=== PATIENT | male | born 1980 | race African-American/Black ===

== ENCOUNTER → 2019-11-06 10:37 | Outpatient (BNVA) | payer MEDICARE, MEDICAID, SELFPAY | PROVIDERS: Visit Provider Nurse Practitioner Psychiatric/Mental Health | DX: F33.1 Major depressive disorder, recurrent, moderate (principal); F17.210 Nicotine dependence, cigarettes, uncomplicated; F11.21 Opioid dependence, in remission | CPT/HCPCS: 99213 ==

== ENCOUNTER → 2020-02-25 07:33 | Outpatient (BNVA) | payer MEDICARE, MEDICAID, SELFPAY | PROVIDERS: Visit Provider Nurse Practitioner Psychiatric/Mental Health | DX: F33.1 Major depressive disorder, recurrent, moderate (principal); F17.210 Nicotine dependence, cigarettes, uncomplicated; F11.21 Opioid dependence, in remission | CPT/HCPCS: 99213 ==

== ENCOUNTER → 2020-03-24 07:26 | Outpatient (BNVA) | payer MEDICARE, MEDICAID, SELFPAY | PROVIDERS: Visit Provider Nurse Practitioner Psychiatric/Mental Health | DX: F33.1 Major depressive disorder, recurrent, moderate (principal); F17.210 Nicotine dependence, cigarettes, uncomplicated; F11.21 Opioid dependence, in remission; F43.12 Post-traumatic stress disorder, chronic | CPT/HCPCS: 99213 ==

== ENCOUNTER → 2020-06-16 07:58 | Outpatient (BNVA) | payer MEDICARE, MEDICAID, SELFPAY | PROVIDERS: Visit Provider Nurse Practitioner Psychiatric/Mental Health | DX: F33.1 Major depressive disorder, recurrent, moderate (principal); F17.210 Nicotine dependence, cigarettes, uncomplicated; Z63.4 Disappearance and death of family member; F11.21 Opioid dependence, in remission | CPT/HCPCS: 99213 ==

== ENCOUNTER → 2020-12-04 08:30 | Outpatient (BNVA) | payer MEDICARE, MEDICAID, SELFPAY | PROVIDERS: Visit Provider Nurse Practitioner Psychiatric/Mental Health | DX: F33.1 Major depressive disorder, recurrent, moderate (principal); Z63.4 Disappearance and death of family member; Z79.899 Other long term (current) drug therapy; F17.210 Nicotine dependence, cigarettes, uncomplicated; F11.21 Opioid dependence, in remission | CPT/HCPCS: 99214 ==

== ENCOUNTER 2021-02-20 02:42 | Emergency (ER) | payer MEDICARE, MEDICAID, SELFPAY ==
[2021-02-20 03:32] VITALS: BP 135/94; PULSE 98; RESP 16; TEMP 36.6; O2SAT 95; BMI 27.4
--- NOTE | 2021-02-20 03:45 | W.ED.BACK ---
HPI - Back Pain/Injury General: Chief Complaint: Back Pain/Injury Stated Complaint: BACK PAIN Time Seen by Provider: 02/20/21 02:45 Source: patient and EMS Mode of arrival: EMS Limitations: no limitations History of Present Illness: HPI Narrative: 40-year-old male states he has a history of chronic low back pain is been having pain for over a year. States that today started having pain again at 01/31/2005 at home and now it has gotten much better. States pain is now 2 out of 10. States she had a injury a little over a year ago at work. Denies any bowel or bladder incontinence. Denies any fever. Associated symptoms: Deny abdominal pain, chills, dysuria, fever(s), nausea or vomiting Review of Systems Const: Denies: fever(s), chills, body aches or change in appetite Eyes: Denies: blurry vision or eye discomfort ENMT: Denies: throat pain or dental pain Card: Denies: chest pain Resp: Denies: dyspnea GI: Denies: abdominal pain, nausea, vomiting or diarrhea : Denies: dysuria Musc: Reports: back pain Skin/Breast: Denies: rash Neuro: Denies: headache(s) Psych: Denies: depression Bryce/Lymph: Denies: easy bruising All/Imm: Denies: urticaria PFSH ED PFSH: Medical History Bereavement Loss of multiple family members, most recent cousin by suicide. Major depressive disorder, recurrent episode, moderate with anxious distress Nicotine dependence, cigarettes, uncomplicated Opioid dependence, in remission in sustained remission Social History Smoking and tobacco status: current every day smoker cigarettes Years cigarettes smoked: 20 Quit status (tobacco): considering quitting Second hand smoke exposure: No Physical Exam Const: COMMON NORMALS: no acute distress, patient oriented x3 and healthy appearing HENMT: COMMON NORMALS: normocephalic and atraumatic HEAD & SCALP: normocephalic and atraumatic Eye: COMMON NORMALS: Equal, round and reactive pupils present and EOMs intact bilaterally PUPIL: Yes Equal, round and reactive pupils present Neck/C-Spine: COMMON NORMALS: full ROM and supple Chest: COMMONS NORMALS: normal inspection of the chest and normal palpation of entire chest wall Resp: COMMON NORMALS: normal respiratory effort, No retractions, No use of accessory muscles and clear to auscultation bilaterally AUSCULTATION: clear to auscultation bilaterally Cardio: COMMON NORMALS: regular rate, regular rhythm and No murmurs present (Cardio) RATE: regular rate RHYTHM: regular rhythm GI: COMMON NORMALS: Normal to inspection, nondistended, normoactive bowel sounds present, Soft to palpation, non-tender and no masses PALPATION: Yes Soft to palpation Back/Pelvis: OTHER: slight low back tenderness paraspinal Extremity: COMMON NORMALS: normal to inspection and full ROM Neuro: COMMON NORMALS: patient oriented x3, moves all extremities and no focal motor deficits Psych: COMMON NORMALS: mental status grossly normal, Normal thought process present and cooperative THOUGHT PROCESS: Normal thought process present Skin: COMMON NORMALS: no rashes or lesions noted and no wounds GENERAL SKIN EXAM: no rashes or lesions noted Course Vital Signs: Vital signs: Vital Signs Temperature 97.8 F 02/20/21 03:32 Pulse Rate 98 02/20/21 03:32 Respiratory Rate 16 02/20/21 03:32 Blood Pressure 135/94 02/20/21 03:32 Pulse Oximetry 95 02/20/21 03:32 MDM - Back Pain/Injury MDM Narrative: Medical decision making narrative: Patient presents with back pain that is chronic in nature. He is well-appearing and has no signs of epidural abscess or spinal cord compression. We will place him on Naprosyn and Robaxin and he is stable for discharge he is return if worsening. Discharge Plan Discharge Patient Disposition: Home Clinical Impression: Back pain Qualifiers: Back pain location: low back pain Chronicity: acute Back pain laterality: bilateral Sciatica presence: without sciatica Qualified Code(s): M54.5 - Low back pain Condition: Stable Prescriptions: New Naprosyn 500 mg tablet 500 mg PO BID PRN (Reason: pain) Qty: 20 RF: 0 Robaxin-750 750 mg tablet 750 mg PO Q6H Qty: 30 RF: 0 No Action quetiapine [Seroquel XR] 400 mg tablet extended release 24 hr 400 mg PO .7 pm Qty: 90 RF: 2 citalopram [Celexa] 40 mg tablet 40 mg PO .morning Qty: 90 RF: 2 buspirone 10 mg tablet 10 mg PO TID Qty: 270 RF: 2 ibuprofen 800 mg tablet 800 mg PO TID PRN (Reason: pain) Qty: 90 RF: 6 Discharge Orders: Discharge ED (Routine); Ordered 02/20/21 Ordered By: Ar Grimaldo Discharge Diet: Advance as tolerated Discharge Activity: Resume usual activity Patient Instructions: Opioid Safety Coding Level of Care Code ED Software Architect for Chiarag Fwd Exam Comprehensive
[2021-02-20] MEDS: ketorolac 60 mg/2 mL INJ IM (04:19)
== END 2021-02-20 04:24 | disposition home or self-care (01) ==
PROVIDERS: Emergency Provider Emergency Medicine
DX: M54.5 Low back pain (principal); F17.210 Nicotine dependence, cigarettes, uncomplicated
CPT/HCPCS: 96372; 99283; J1885

== ENCOUNTER → 2021-03-03 07:21 | Outpatient (BNVA) | payer MEDICARE, MEDICAID, SELFPAY | PROVIDERS: Visit Provider Nurse Practitioner Psychiatric/Mental Health | DX: F33.1 Major depressive disorder, recurrent, moderate (principal); F17.210 Nicotine dependence, cigarettes, uncomplicated; Z63.4 Disappearance and death of family member; F11.21 Opioid dependence, in remission | CPT/HCPCS: 99214 ==

== ENCOUNTER → 2021-05-26 07:18 | Outpatient (BNVA) | payer MEDICARE, MEDICAID, SELFPAY | PROVIDERS: Visit Provider Nurse Practitioner Psychiatric/Mental Health | DX: F33.1 Major depressive disorder, recurrent, moderate (principal); M54.9 Dorsalgia, unspecified; Z63.4 Disappearance and death of family member; F17.210 Nicotine dependence, cigarettes, uncomplicated; F11.21 Opioid dependence, in remission | CPT/HCPCS: 99214 ==

== ENCOUNTER → 2021-05-29 10:05 | Outpatient (BNVA) | payer MEDICARE, MEDICAID, SELFPAY | PROVIDERS: Visit Provider Nurse Practitioner Psychiatric/Mental Health | DX: Z79.899 Other long term (current) drug therapy (principal) | CPT/HCPCS: 80053; 80061; 83036 ==

== ENCOUNTER → 2021-06-10 09:41 | Outpatient (BNVA) | payer MEDICARE, MEDICAID, SELFPAY | PROVIDERS: PCP Nurse Practitioner Psychiatric/Mental Health; Referring Provider Nurse Practitioner Psychiatric/Mental Health; Visit Provider Anesthesiology Pain Medicine | DX: M48.062 Spinal stenosis, lumbar region with neurogenic claudication (principal); M47.816 Spondylosis without myelopathy or radiculopathy, lumbar region; M51.16 Intervertebral disc disorders with radiculopathy, lumbar region; M79.604 Pain in right leg; M79.605 Pain in left leg; F17.210 Nicotine dependence, cigarettes, uncomplicated | CPT/HCPCS: 99214 ==

== ENCOUNTER → 2021-08-18 08:06 | Outpatient (BNVA) | payer MEDICARE, MEDICAID, SELFPAY | PROVIDERS: PCP Nurse Practitioner Psychiatric/Mental Health; Visit Provider Nurse Practitioner Psychiatric/Mental Health | DX: F33.1 Major depressive disorder, recurrent, moderate (principal); M54.9 Dorsalgia, unspecified; F11.21 Opioid dependence, in remission; F17.210 Nicotine dependence, cigarettes, uncomplicated | CPT/HCPCS: 99214 ==

== ENCOUNTER → 2022-02-08 14:51 | Outpatient (BNVA) | payer MEDICARE, MEDICAID, SELFPAY | PROVIDERS: PCP Nurse Practitioner Psychiatric/Mental Health; Visit Provider Nurse Practitioner Psychiatric/Mental Health | DX: F33.1 Major depressive disorder, recurrent, moderate (principal); F17.210 Nicotine dependence, cigarettes, uncomplicated; F11.21 Opioid dependence, in remission; Z63.4 Disappearance and death of family member | CPT/HCPCS: 99214 ==

== ENCOUNTER 2023-11-09 14:31 | Inpatient (IN) | payer MEDICARE, MEDICAID, SELFPAY ==
[2023-11-09] VITALS (56 sets, daily range): BP systolic 97–221; BP diastolic 60–150; PULSE 75–110; RESP 10–24; TEMP 36.6–36.7; O2SAT 91–99; BMI 27.4; BMI 25.9
--- NOTE | 2023-11-09 14:38 | ECG_ITS ---
[facility] Test Date: 2023-11-09 Pat Name: Charles Main Department: Room: Gender: Male Maker Up Folding: : 1980 Requested By: Harlan Zapata Order Number: [id number] Arlyn MD: Grayson Galvez M.D. Measurements Intervals [place] Rate: 102 P: 46 W[place]: 152 QRS: 27 QRSD: 85 T: 70 QT: 320 QTc: 418 Interpretive Statements SINUS TACHYCARDIA LEFT ATRIAL ENLARGEMENT [-0.15mV P-WAVE IN V1/V2] POSSIBLE LEFT VENTRICULAR HYPERTROPHY [VOLTAGE CRITERIA PLUS LAE OR QRS WIDENING] No previous ECG available for comparison Electronically Signed On 11-09-2023 16:13:15 CDT by Grayson Galvez M.D. [id number] f
--- NOTE | 2023-11-09 14:39 | XRR_ITS ---
PROCEDURE INFORMATION: Exam: XR Chest Exam date and time: 11/09/2023 2:49 PM Age: 42 years old Clinical indication: Cough and dyspnea; Additional info: Dyspnea/cough TECHNIQUE: Imaging protocol: Radiologic exam of the chest. Views: 1 view. COMPARISON: No relevant prior studies available. FINDINGS: Lungs: Unremarkable. No consolidation. Pleural spaces: Unremarkable. No pleural effusion. No pneumothorax. Heart/Mediastinum: Unremarkable. No cardiomegaly. Bones/joints: Visualized osseous structures show no acute abnormality. XR/XR chest 1V portable [id number] IMPRESSION: No acute cardiopulmonary abnormality.
--- NOTE | 2023-11-09 14:53 | ED_ITS ---
HPI - Chest Pain 2 General: Chief Complaint: Chest Pain Stated Complaint: Chest pain Time Seen by Provider: 11/09/23 14:35 Source: patient Mode of arrival: ambulatory History of Present Illness: 42-year-old male presents to the emergen cy room with complaints of chest discomfort and elevated blood pressure. He has had intermittent chest discomfort for the last 3 to 4 days. He was at an appointment with [facility] today and they noted markedly elevated blood pressure EMS was called he received aspirin and sublingual nitro and route. On arrival here his blood pressure is 08/29/1989 systolic over 140s. He is also moderately tachycardic. He denies any fever sweats chills or abdominal pain no chest pain at this present time. No known history of heart disease he has not had any difficulty speech swallowing or vision. No known history of hypertension or coronary artery disease. He has not previously been treated for hypertension MD complaint: chest pain Onset (ago): day(s) (3-4) Timing of current episode: episodic Onset: during rest Pain location: substernal Pain radiation: none Severity: mild Associated symptoms: Deny abdominal pain, dyspnea or fever(s) Review of Systems 2 Const: Denies: fever(s) or chills Card: Denies: chest pain Resp: Denies: dyspnea GI: Denies: abdominal pain : Denies: dysuria, urinary frequency or urinary urgency Musc: Denies: neck pain or back pain Skin/Breast: Denies: rash PFSH ED 2 PFSH: Medical History Generalized anxiety disorder Psychiatric care Bereavement Loss of multiple family members, most recent cousin by suicide. Opioid dependence, in remission heroin, in sustained remission- 9 years Nicotine dependence, cigarettes, uncomplicated Major depressive disorder, recurrent episode, moderate with anxious distress Social History Smoking and tobacco/nicotine status: current every day tobacco/nicotine user cigarettes Years cigarettes smoked: 20 Quit status (tobacco/nicotine): considering quitting Second hand smoke exposure: No Physical Exam 2 Const: COMMON NORMALS: no acute distress GENERAL APPEARANCE: cooperative and comfortable ORIENTATION/CONSCIOUSNESS: Yes awake, Yes oriented to person, Yes oriented to place and Yes oriented to time HENMT: COMMON NORMALS: normocephalic, atraumatic and hearing grossly normal bilaterally HEAD & SCALP: normocephalic and atraumatic Resp: COMMON NORMALS: normal respiratory effort, No retractions, No use of accessory muscles and clear to auscultation bilaterally AUSCULTATION: clear to auscultation bilaterally Cardio: COMMON NORMALS: regular rhythm and No murmurs present (Cardio) R ATE: tachycardic RHYTHM: regular rhythm GI: COMMON NORMALS: Soft to palpation and No hepatosplenomegaly present A USCULTATION: Yes normoactive bowel sounds PALPATION: Yes Soft to palpation, No Tenderness to palpation present (GI), No Guarding due to palpation present (GI) and Yes No hepatosplenomegaly present Extremity: COMMON NORMALS: normal to inspection, capillary refill normal, no clubbing, cyanosis or edema, no calf tenderness and no pedal edema Neuro: SENSORIUM/ORIENTATION: Yes oriented to person, Yes oriented to place and Yes oriented to time OTHER: No focal neurologic deficits are noted abbreviated NIH exam negative Skin: COMMON NORMALS: no rashes or lesions noted GENERAL SKIN EXAM: no rashes or lesions noted Course 2 Vital Signs: Vital signs: Vital Signs Temperature 98.9 F 11/10/23 00:45 Pulse Rate 85 11/10/23 02:30 Respiratory Rate 23 H 11/10/23 02:30 Blood Pressure 121/90 11/10/23 02:30 Pulse Oximetry 97 11/10/23 02:30 Oxygen Delivery Me thod Room Air 11/10/23 00:45 MDM - Chest Pain Medical Decision Making Attempted hydralazine and labetalol which did not adequately control his blood pressure ultimately started on nicardipine drip along with a 2 and half milligram IV push dose of metoprolol and a short acting p.o. dose of metoprolol. He had improvement but not control of his blood pressure with this and continue to titrate up on his nicardipine. Eventually were able to back off a little on the nicardipine. Discussed with the hospitalist will admit for accelerated hypertension. Reviewed findings with patient he is agreement with plan. Medical Records I reviewed the patient's medical records. Lab Data I reviewed the patient's lab results. 11/10/23 03:41 11/10/23 03:41 Radiology Impressions Chest X-Ray 11/09/23 14:39 IMPRESSION: No acute cardiopulmonary abnormality. Head CT 11/09/23 17:01 IMPRESSION: 1. Mild encephalomalacia peripheral right occipital lobe. This is related to chronic change, which can be secondary to old infarct or old injury or trauma. 2. Mild increased CSF density of 1.5-2 cm anteromedial right posterior cranial fossa favoring benign subarachnoid cyst. 3. No acute intracranial abnormality otherwise. Laboratory Results WBC 5.95 10^3/uL (3.29-11.43) 11/09/23 14:22 RBC 5.26 10^6/uL (3.85-5.65) 11/09/23 14:22 Hgb 16.10 g/dL (11.27-16.99) 11/09/23 14:22 Hct 43.5 % (37-53) 11/09/23 14:22 MCV 82.7 fl (82-101) 11/09/23 14:22 MCH 30.6 pg (27-33) 11/09/23 14:22 MCHC 37.0 g/dL (30-55) 11/09/23 14:22 RDW 13.2 % (12.1-15.1) 11/09/23 14:22 Plt Count 171 10^3/cmm (157-399) 11/09/23 14:22 MPV 11.2 fL (7.4-10.4) H 11/09/23 14:22 Neut % (Auto) 41.9 % 11/09/23 14:22 Lymph % (Auto) 47.4 % 11/09/23 14:22 [place] % (Auto) 9.4 % 11/09/23 14:22 Eos % (Auto) 0.8 % 11/09/23 14:22 Baso % (Auto) 0.3 % 11/09/23 14:22 Neut # (Auto) 2.49 10^3/uL (1.8-7.7) 11/09/23 14:22 Lymph # (Auto) 2.8 10^3/uL (0.8-4.8) 11/09/23 14:22 [place] # (Auto) 0.6 10^3/uL (0.2-0.9) 11/09/23 14:22 Eos # (Auto) 0.1 10^3/uL (0.0-0.8) 11/09/23 14:22 Baso # (Auto) 0.0 10^3/uL (0.0-0.1) 11/09/23 14:22 Nucleated RBC % (auto) 0 % 11/09/23 14:22 Nucleated RBCs # 0.0 /100WBC 11/09/23 14:22 Sodium 139 mmol/L (136-145) 11/09/23 14:22 Potassium 4.0 mmol/L (3.5-5.1) 11/09/23 14:22 Chloride 100 mmol/L (98-107) 11/09/23 14:22 Carbon Dioxide 24 mmol/L (22-29) 11/09/23 14:22 Anion Gap 19.0 (5-19) 11/09/23 14:22 BUN 8 mg/dL (6-20) 11/09/23 14:22 Creatinine 1.1 mg/dL (0.7-1.2) 11/09/23 14:22 GFR Calculation 88.4 mL/min (90-130) L 11/09/23 14:22 Glucose 92 mg/dL (65-115) 11/09/23 14:22 Calculated Osmolality 286 mOsm/kg (285-295) 11/09/23 14:22 Calcium 9.6 mg/dL (8.5-10.5) 11/09/23 14:22 Total Bilirubin 0.7 mg/dL (0.15-1.2) 11/09/23 14:22 AST 30 U/L (0-40) 11/09/23 14:22 ALT 53 U/L (0-41) H 11/09/23 14:22 Alkaline Phosphatase 98 U/L (40-130) 11/09/23 14:22 Troponin T Baseline 10 ng/L (0-15) 11/09/23 14:22 Troponin T 120 Minute 15.03 ng/L (0-15) H 11/09/23 16:44 Delta Troponin T 5.03 ABS# (0-10) 11/09/23 16:44 Total Protein 8.2 g/dL (6.6-8.7) 11/09/23 14:22 Albumin 5.1 g/dL (3.5-5.2) 11/09/23 14:22 Globulin 3.1 g/dL (1.3-4.6) 11/09/23 14:22 TSH 2.21 uIU/mL (0.27-4.20) 11/09/23 14:22 Random Cortisol 25.65 ug/dL (2.47-19.5) H 11/09/23 14:22 Urine Color Yellow (Yellow) 11/09/23 16:26 Urine Appearance Clear (CLEAR) 11/09/23 16:26 Urine pH 6 (5-7) 11/09/23 16:26 Ur Specific [place] 1.010 (1.005-1.030) 11/09/23 16:26 Urine Protein Neg (Negative) 11/09/23 16:26 Urine Glucose (UA) Norm (Normal) 11/09/23 16:26 Urine Ketones Negative (Negative) 11/09/23 16:26 Urine Blood Neg (Negative) 11/09/23 16:26 Urine Nitrate Negative (Negative) 11/09/23 16:26 Urine Bilirubin Neg (Negative) 11/09/23 16:26 Urine Urobilinogen Norm mg/dL (Negative) 11/09/23 16:26 Ur Leukocyte Esterase Negative (Negative) 11/09/23 16:26 Urine Opiates Screen Negative ng/mL (Negative) 11/09/23 16:26 Ur Barbiturates Screen Negative ng/mL (Negative) 11/09/23 16:26 Ur Phencyclidine Scrn Negative ng/mL (Negative) 11/09/23 16:26 Ur Amphetamines Screen Negative ng/mL (Negative) 11/09/23 16:26 U Benzodiazepines Scrn Negative ng/mL (Negative) 11/09/23 16:26 Urine Cocaine Screen Negative ng/mL (Negative) 11/09/23 16:26 U Marijuana (THC) Screen Negative ng/mL (Negative) 11/09/23 16:26 All radiology interpretation(s) finalized by discharge Critical Care Time 2 Critical Care Time: Critical Care Time: Yes Total Critical Care Time: 35 Attestation: The high probability of a clinically significant, sudden or life threatening deterioration of the patient's cardiovascular system(s) required my full and direct attention, intervention and personal management. The critical care time is as shown. This time is in addition to time spent performing any reported procedures but includes the following: [x] Data and vital sign review and interpretation [x] Patient assessment, examination and intervention [x] Documentation [x] Medication orders and management Discharge Plan Discharge Patient Disposition: Admitted As Inpatient Admit Provider: Palmira Siddiqui Clinical Impression: Accelerated hypertension Condition: Stable Coding Level of Care Code ED Glued Wood Tester for To Zamora
[2023-11-09] MEDS: hyDRALAzine 20 mg/mL INJ 1 mL 10 MG IVP ×2 (15:04→15:41)
[2023-11-09] MEDS: labetalol 5 mg/mL SDV 20mL 10 MG IVP (15:04)
[2023-11-09 15:05] LABS: Basophils % 0.3 %; Eosinophils # 0.1 10^3/uL (0.0-0.8); Eosinophils % 0.8 %; Hematocrit 43.5 % (37-53); Lymphocytes # 2.8 10^3/uL (0.8-4.8); Lymphocytes % 47.4 %; Mean Corpuscular Hemoglobin 30.6 pg (27-33); Mean Corpuscular Volume 82.7 fl (82-101); Mean Platelet Volume 11.2 fL (7.4-10.4); Monocytes # 0.6 10^3/uL (0.2-0.9); Monocytes % 9.4 %; Neutrophils # 2.49 10^3/uL (1.8-7.7); Neutrophils % 41.9 %; Nucleated Red Blood Cells % 0 %; Platelet Count 171 10^3/cmm (157-399); Red Blood Count 5.26 10^6/uL (3.85-5.65); Red Cell Distribution Width 13.2 % (12.1-15.1); White Blood Count 5.95 10^3/uL (3.29-11.43)
[2023-11-09 15:25] LABS: Troponin(5th) Baseline 10 ng/L (0-15)
[2023-11-09 15:30] LABS: Alanine Aminotransferase 53 U/L (0-41); Albumin Level 5.1 g/dL (3.5-5.2); Alkaline Phosphatase 98 U/L (40-130); Aspartate Amino Transferase 30 U/L (0-40); Blood Urea Nitrogen 8 mg/dL (6-20); Calcium 9.6 mg/dL (8.5-10.5); Carbon Dioxide 24 mmol/L (22-29); Chloride 100 mmol/L (98-107); Creatinine Clr Calc Pharmacy 79.0574; Globulin 3.1 g/dL (1.3-4.6); Glomerular Filtration Rate 88.4 mL/min (90-130); Glucose 92 mg/dL (65-115); Osmolality Calculated 286 mOsm/kg (285-295); Sodium 139 mmol/L (136-145); Total Bilirubin 0.7 mg/dL (0.15-1.2); Total Protein 8.2 g/dL (6.6-8.7)
[2023-11-09] MEDS: nicardipine 20 MG/200 ML PREMIX 50 MG IV (16:14)
--- NOTE | 2023-11-09 16:39 | ECG_ITS ---
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 Measurements Intervals [place] Rate: 103 P: 58 HI: 160 QRS: 48 QRSD: 86 T: 66 QT: 322 QTc: 423 Interpretive Statements SINUS TACHYCARDIA POSSIBLE RIGHT ATRIAL ENLARGEMENT [0.25mV P-WAVE] LEFT ATRIAL ENLARGEMENT [-0.15mV P-WAVE IN V1/V2] POSSIBLE LEFT VENTRICULAR HYPERTROPHY [VOLTAGE CRITERIA PLUS LAE OR QRS WIDENING] NONSPECIFIC T-WAVE ABNORMALITY Compared to ECG 11/09/2023 14:38:29 T-wave abnormality now present Electronically Signed On 11-10-2023 8:34:27 CDT by Grayson Galvez M.D. [id number]
[2023-11-09 16:40] LABS: Add Urine Microscopic? NO; Charge for UA Resulting for Rev
[2023-11-09 16:43] LABS: Bilirubin Urine Neg (Negative); Blood Urine Neg (Negative); Glucose Urine UA Norm (Normal); Ketones Urine Negative (Negative); Leukocyte Esterase Urine Negative (Negative); Nitrate Urine Negative (Negative); Protein Urine Neg (Negative); Urine Appearance Clear (CLEAR); Urine Color Yellow (Yellow); Urobilinogen Urine Norm (Negative); pH Urine 6 (5-7)
[2023-11-09] MEDS: metoprolol tartrate 1 mg/1 mL SDV 5 mL 2.5 MG IVP (16:48)
[2023-11-09] MEDS: metoprolol tartrate 25 mg Tablet PO (16:49)
--- NOTE | 2023-11-09 17:01 | CTR_ITS ---
PROCEDURE INFORMATION: Exam: CT Head Without Contrast Exam date and time: 11/09/2023 5:25 PM Age: 42 years old Clinical indication: Other: Elevated BP TECHNIQUE: Imaging protocol: Computed tomography of the head without contrast. Radiation optimization: All CT scans at this facility use at least one of these dose optimization techniques: automated exposure control; mA and/or kV adjustment per patient size (includes targeted exams where dose is matched to clinical indication); or iterative reconstruction. COMPARISON: No relevant prior studies available. RADIATION DOSE METRICS: Total DLP (mGy-cm): 1045.14 FINDINGS: Brain: A mild area of CSF density encephalomalacia is seen within the peripheral right occipital lobe. Increased CSF density of 1.5-2 cm noted within the anteromedial right posterior cranial fossa, likely benign subarachnoid cyst. No intracranial hemorrhage or hematoma is seen. No mass effect or shift of midline structures. No findings to indicate territorial or large vessel ischemic infarct. Cerebral ventricles: No significant ventriculomegaly. Paranasal sinuses: See Bones/joints finding. Mastoid air cells: Visualized mastoid air cells are well aerated. Bones/joints: Bone windows of the skull show no acute abnormality. Note is made of metallic BB like density within the soft tissues along the anterior frontal sinus region. Soft tissues: See Bones/joints finding. CT/CT head wo con* [id number] IMPRESSION: 1. Mild encephalomalacia peripheral right occipital lobe. This is related to chronic change, which can be secondary to old infarct or old injury or trauma. 2. Mild increased CSF density of 1.5-2 cm anteromedial right posterior cranial fossa favoring benign subarachnoid cyst. 3. No acute intracranial abnormality otherwise.
[2023-11-09 17:26] LABS: Troponin 5 2HR 15.03 ng/L (0-15); Troponin 5 2HR Delta 5.03 ABS# (0-10)
[2023-11-09 17:29] LABS: Amphetamines Screen Urine Negative (Negative); Barbiturates Screen Urine Negative (Negative); Benzodiazepines Screen Urine Negative (Negative); Cocaine Screen Urine Negative (Negative); Opiate Screen Urine Negative (Negative); PCP Screen Urine Negative (Negative); THC Screen Urine Negative (Negative)
[2023-11-09] MEDS: enoxaparin 40 mg/0.4 mL Syringe SUBCUT (18:47)
[2023-11-09] MEDS: sodium chloride 0.9% 1,000 ML 75 ML IV (18:47)
[2023-11-09] MEDS: nicardipine 20 MG/200 ML PREMIX 75 MG IV ×2 (18:55→21:16)
[2023-11-09 19:53] LABS: Cortisol Random 25.65 ug/dL (2.47-19.5); Thyroid Stimulating Hormone 2.21 uIU/mL (0.27-4.20)
--- NOTE | 2023-11-09 20:32 | P.HP_ITS ---
Providers/Chief Complaint 2 Admitting Physician: Palmira Siddiqui MD Primary Care Provider: Amanda Baer, [facility] Chief Complaint: Chest pain History of Present Illness Charles Main is a 42 year old male does not have signal past medical history other than depression and anxiety presented to the hospital for hypertensive emergency. Patient is stating that he did not experience any chest pain shortness of breath orthopnea PND recently but noted chest pain a week ago which she describing as substernal but achy in nature no active chest pain No previous history of coronary disease or CHF. Stating that his brother who was 34 years old of heart attack. He is denying IV drug abuse, he is disabled, has congenital squint, Patient seems to have mild encephalomalacia right occipital lobe patient is denying any history of CVA At the time of evaluation I have asked nurse to turn off Cardene drip within an hour blood pressure 140/90 added spironolactone and chlorthalidone with add lisinopril in the morning Requested drug screen, B12, TSH, cortisol level Patient stating that he was not experiencing any symptoms today he went to the behavioral health clinic where he was diagnosed with hypertensive emergency and he was asked to go to the ER Review of Systems 2 Const: Denies: fever(s) Eyes: Denies: change in vision ENMT: Denies: throat pain Card: Denies: chest pain Resp: Denies: dyspnea GI: Denies: abdominal pain : Denies: flank pain Medications/Allergies Home Medications Medication Instructions Recorded Confirmed Last Taken Type buspirone 10 mg tablet 10 mg PO TID #90 tabs 10/11/23 11/09/23 11/09/23 Rx quetiapine 100 mg tablet (Seroquel) 100 mg PO BEDTIME #30 tabs 10/11/23 11/09/23 11/08/23 Rx citalopram 20 mg tablet 20 mg PO QAM 11/09/23 11/09/23 11/09/23 History Allergies Allergy/AdvReac Type Severity Reaction Status Date / Time No Known Allergies Allergy Verified 11/09/23 14:43 PFSH Acute 2 PFSH: Medical History Generalized anxiety disorder Psychiatric care Bereavement Loss of multiple family members, most recent cousin by suicide. Opioid dependence, in remission heroin, in sustained remission- 9 years Nicotine dependence, cigarettes, uncomplicated Major depressive disorder, recurrent episode, moderate with anxious distress Social History Smoking and tobacco/nicotine status: current every day tobacco/nicotine user cigarettes Years cigarettes smoked: 20 Quit status (tobacco/nicotine): considering quitting Second hand smoke exposure: No Vitals/I&O/Wt Last Vital Signs Temp 98.1 F 11/09/23 14:35 Pulse 92 11/09/23 20:13 Resp 20 H 11/09/23 20:13 BP 129/93 11/09/23 20:13 Pulse Ox 94 11/09/23 20:13 O2 Del Method Room Air 11/09/23 17:47 11/09/23 11/09/23 11/09/23 06:59 14:59 22:59 Intake Total 200.000 / 200.000 Balance 200.000 / 200.000 Weight last 48 hrs Weight 72.575 kg Physical Exam 2 Narrative: -[place] Awake and alert Nonfocal neuroexam GCS 15 Pleasant Currently on room air No sign of heart failure S1, S2 Lower extremity no edema GCS 15 Afebrile Data 11/09/23 14:22 11/09/23 14:22 A&P Assessment and plan (1) Hypertensive emergency: (2) Nicotine dependence, cigarettes, uncomplicated: Plan Hypertensive emergency Turn off Cardene drip within 1 hour after overlapping with p.o. medications MAP reduction 25% in next 6 hours No neurological symptoms Does not take any antihypertensive regimen at home Add chlorthalidone along lisinopril and spironolactone Check TSH, B12, cortisol level and drug screen Will request echo, Patient is stating that his brother of heart attack at age 34, Patient not having any active chest pain Troponin trending down Further plan will be made after reviewing blood pressure and echo Monitor in ICU for now Patient is on disability Lives alone Full code Attestations 2 Medical Necessity Statement*: Anticipating more than 2 midnights for the management of hypertensive emergency requiring IV Cardene drip Diagnoses Hypertensive emergency I16.1 Nicotine dependence, cigarettes, uncomplicated F17.210
--- NOTE | 2023-11-09 20:54 | ECG_ITS ---
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 Measurements Intervals [place] Rate: 87 P: 30 GA: 154 QRS: 38 QRSD: 80 T: 76 QT: 319 QTc: 384 Interpretive Statements SINUS RHYTHM ST ELEVATION, PROBABLY EARLY REPOLARIZATION [ST ELEVATION WITH NORMALLY INFLECTED T-WAVE] NONSPECIFIC T-WAVE ABNORMALITY Compared to ECG 11/09/2023 15:33:25 ST (T wave) deviation now present Early repolarization now present Sinus tachycardia no longer present Atrial abnormality no longer present T-wave abnormality still present Electronically Signed On 11-10-2023 8:37:31 CDT by Grayson Galvez M.D. [id number]
[2023-11-09 21:17] LABS: Troponin 5 6HR 11.82 ng/L (0-15); Troponin 5 6HR Delta 1.82 ng/L (0-12)
[2023-11-09] MEDS: BuSPIRONE 10 mg Tablet PO (21:50)
[2023-11-09] MEDS: spironolactone 25 mg Tablet PO (21:50)
[2023-11-09] MEDS: quetiapine 100 mg Tablet PO (21:50)
[2023-11-09] MEDS: chlorthalidone 25 mg Tablet 12.5 MG PO (21:50)
[2023-11-10] VITALS (47 sets, daily range): BP systolic 95–153; BP diastolic 64–118; PULSE 63–89; RESP 13–23; TEMP 37.1–37.2; O2SAT 94–100; BMI 27.5
[2023-11-10 03:59] LABS: Basophils % 0.2 %; Eosinophils # 0.1 10^3/uL (0.0-0.8); Eosinophils % 0.9 %; Hematocrit 42.9 % (37-53); Lymphocytes # 3.8 10^3/uL (0.8-4.8); Lymphocytes % 42.9 %; Mean Corpuscular HGB Conc 35.9 g/dL (30-55); Mean Corpuscular Hemoglobin 29.9 pg (27-33); Mean Corpuscular Volume 83.3 fl (82-101); Mean Platelet Volume 10.9 fL (7.4-10.4); Monocytes # 0.7 10^3/uL (0.2-0.9); Neutrophils # 4.18 10^3/uL (1.8-7.7); Neutrophils % 47.9 %; Nucleated Red Blood Cells % 0 %; Platelet Count 167 10^3/cmm (157-399); Red Blood Count 5.15 10^6/uL (3.85-5.65); Red Cell Distribution Width 13.4 % (12.1-15.1); White Blood Count 8.74 10^3/uL (3.29-11.43)
[2023-11-10 04:38] LABS: Anion Gap 17.8 (5-19); Blood Urea Nitrogen 11 mg/dL (6-20); Calcium 9.2 mg/dL (8.5-10.5); Carbon Dioxide 22 mmol/L (22-29); Chloride 103 mmol/L (98-107); Creatinine Clr Calc Pharmacy 68.1906; Glucose 100 mg/dL (65-115); Osmolality Calculated 287 mOsm/kg (285-295); Potassium 3.8 mmol/L (3.5-5.1); Sodium 139 mmol/L (136-145)
[2023-11-10] MEDS: citalopram 20 mg Tablet PO (06:29)
[2023-11-10] MEDS: lisinopril 10 mg Tablet PO (09:13)
[2023-11-10] MEDS: spironolactone 25 mg Tablet PO (09:13)
[2023-11-10] MEDS: chlorthalidone 25 mg Tablet 12.5 MG PO (09:13)
[2023-11-10] MEDS: BuSPIRONE 10 mg Tablet PO ×2 (09:13→14:51)
--- NOTE | 2023-11-10 14:03 | P.DS_ITS ---
Discharge Providers Date of Admission: 11/09/23 20:12 Date of Discharge: November 10, 2023 Attending Provider at Admission: Palmira Siddiqui MD Attending Provider at Discharge: Palmiar Siddiqui MD Primary Care Provider: DC Chinchilla Diagnoses at Discharge Discharge Diagnosis (1) Hypertensive emergency: Status: Acute (2) Nicotine dependence, cigarettes, uncomplicated: Status: Chronic Reason for Visit Reason for Visit: Chest pain Hospital Course Hospital Course Patient presented with hypertensive urgency yesterday. Blood pressure systolic 220. He was given IV push medications however that did not control and therefore started on a Cardene drip. Blood pressure was low at 25% in the first 6 hours. He was started on oral medications and drip was turned off. At time of discharge patient's blood pressure is 119/89. He will be sent home on lisinopril 20 daily and spironolactone 25 daily at this time. He has been advised to keep a blood pressure log sheet to take to his primary care sabrina yañez. He does not have a PCP and he has been set up with 1. Patient is asymptomatic at time of discharge. TSH cortisol level were checked during hospital stay. Troponins negative. Renin level is pending. He is to follow-up with PCP for further workup. 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 No suspicion of stroke at this time. Discharge Data Studies Completed and Pending Completed Studies During Hospitalization Category Date Time Status CT head wo con* [id number] Stat Cat Scan 11/09/23 17:01 Completed XR chest 1V portable [id number] Stat Exams 11/09/23 14:39 Completed CV. echo complete* [id number] Routine Ultrasound 11/10/23 20:34 Completed Pending at discharge Category Date Time Status Sestamibi Stress Test Request Routine Exams 11/09/23 20:34 Stop Req RENIN [Plasma Renin Activity LC/MS/MS] Routine Lab 11/09/23 14:22 Received Radiology Impressions Chest X-Ray 11/09/23 14:39 IMPRESSION: No acute cardiopulmonary abnormality. Head CT 11/09/23 17:01 IMPRESSION: 1. Mild encephalomalacia peripheral right occipital lobe. This is related to chronic change, which can be secondary to old infarct or old injury or trauma. 2. Mild increased CSF density of 1.5-2 cm anteromedial right posterior cranial fossa favoring benign subarachnoid cyst. 3. No acute intracranial abnormality otherwise. Laboratory Results WBC 8.74 10^3/uL (3.29-11.43) 11/10/23 03:41 RBC 5.15 10^6/uL (3.85-5.65) 11/10/23 03:41 Hgb 15.40 g/dL (11.27-16.99) 11/10/23 03:41 Hct 42.9 % (37-53) 11/10/23 03:41 MCV 83.3 fl (82-101) 11/10/23 03:41 MCH 29.9 pg (27-33) 11/10/23 03:41 MCHC 35.9 g/dL (30-55) 11/10/23 03:41 RDW 13.4 % (12.1-15.1) 11/10/23 03:41 Plt Count 167 10^3/cmm (157-399) 11/10/23 03:41 MPV 10.9 fL (7.4-10.4) H 11/10/23 03:41 Neut % (Auto) 47.9 % 11/10/23 03:41 Lymph % (Auto) 42.9 % 11/10/23 03:41 [place] % (Auto) 8.0 % 11/10/23 03:41 Eos % (Auto) 0.9 % 11/10/23 03:41 Baso % (Auto) 0.2 % 11/10/23 03:41 Neut # (Auto) 4.18 10^3/uL (1.8-7.7) 11/10/23 03:41 Lymph # (Auto) 3.8 10^3/uL (0.8-4.8) 11/10/23 03:41 [place] # (Auto) 0.7 10^3/uL (0.2-0.9) 11/10/23 03:41 Eos # (Auto) 0.1 10^3/uL (0.0-0.8) 11/10/23 03:41 Baso # (Auto) 0.0 10^3/uL (0.0-0.1) 11/10/23 03:41 Nucleated RBC % (auto) 0 % 11/10/23 03:41 Nucleated RBCs # 0.0 /100WBC 11/10/23 03:41 Sodium 139 mmol/L (136-145) 11/10/23 03:41 Potassium 3.8 mmol/L (3.5-5.1) 11/10/23 03:41 Chloride 103 mmol/L (98-107) 11/10/23 03:41 Carbon Dioxide 22 mmol/L (22-29) 11/10/23 03:41 Anion Gap 17.8 (5-19) 11/10/23 03:41 BUN 11 mg/dL (6-20) 11/10/23 03:41 Creatinine 1.2 mg/dL (0.7-1.2) 11/10/23 03:41 GFR Calculation 80.0 mL/min (90-130) L 11/10/23 03:41 Glucose 100 mg/dL (65-115) 11/10/23 03:41 Calculated Osmolality 287 mOsm/kg (285-295) 11/10/23 03:41 Calcium 9.2 mg/dL (8.5-10.5) 11/10/23 03:41 Total Bilirubin 0.7 mg/dL (0.15-1.2) 11/09/23 14:22 AST 30 U/L (0-40) 11/09/23 14:22 ALT 53 U/L (0-41) H 11/09/23 14:22 Alkaline Phosphatase 98 U/L (40-130) 11/09/23 14:22 Troponin T Baseline 10 ng/L (0-15) 11/09/23 14:22 Troponin T 120 Minute 15.03 ng/L (0-15) H 11/09/23 16:44 Delta Troponin T 5.03 ABS# (0-10) 11/09/23 16:44 Troponin T Hi Sens 6Hr 11.82 ng/L (0-15) 11/09/23 20:47 Troponin T Hi Sens 6Hr Delta 1.82 ng/L (0-12) 11/09/23 20:47 Total Protein 8.2 g/dL (6.6-8.7) 11/09/23 14:22 Albumin 5.1 g/dL (3.5-5.2) 11/09/23 14:22 Globulin 3.1 g/dL (1.3-4.6) 11/09/23 14:22 TSH 2.21 uIU/mL (0.27-4.20) 11/09/23 14:22 Random Cortisol 25.65 ug/dL (2.47-19.5) H 11/09/23 14:22 Urine Color Yellow (Yellow) 11/09/23 16:26 Urine Appearance Clear (CLEAR) 11/09/23 16:26 Urine pH 6 (5-7) 11/09/23 16:26 Ur Specific [place] 1.010 (1.005-1.030) 11/09/23 16:26 Urine Protein Neg (Negative) 11/09/23 16:26 Urine Glucose (UA) Norm (Normal) 11/09/23 16:26 Urine Ketones Negative (Negative) 11/09/23 16:26 Urine Blood Neg (Negative) 11/09/23 16:26 Urine Nitrate Negative (Negative) 11/09/23 16:26 Urine Bilirubin Neg (Negative) 11/09/23 16:26 Urine Urobilinogen Norm mg/dL (Negative) 11/09/23 16:26 Ur Leukocyte Esterase Negative (Negative) 11/09/23 16:26 Urine Opiates Screen Negative ng/mL (Negative) 11/09/23 16:26 Ur Barbiturates Screen Negative ng/mL (Negative) 11/09/23 16:26 Ur Phencyclidine Scrn Negative ng/mL (Negative) 11/09/23 16:26 Ur Amphetamines Screen Negative ng/mL (Negative) 11/09/23 16:26 U Benzodiazepines Scrn Negative ng/mL (Negative) 11/09/23 16:26 Urine Cocaine Screen Negative ng/mL (Negative) 11/09/23 16:26 U Marijuana (THC) Screen Negative ng/mL (Negative) 11/09/23 16:26 Vitals Last Vital Signs Temp 98.7 F 11/10/23 04:00 Pulse 66 11/10/23 13:15 Resp 18 11/10/23 13:15 BP 113/89 11/10/23 13:15 Pulse Ox 95 11/10/23 13:15 O2 Del Method Room Air 11/10/23 13:15 Discharge Plan Discharge Patient Disposition: Home Condition: Stable Prescriptions: New lisinopril 10 mg Tablet 20 mg PO DAILY Qty: 30 0RF spironolactone 25 mg Tablet 25 mg PO DAILY Qty: 30 0RF Continued buspirone 10 mg tablet 10 mg PO TID Qty: 90 3RF quetiapine [Seroquel] 100 mg tablet 100 mg PO BEDTIME Qty: 30 3RF citalopram 20 mg tablet 20 mg PO QAM Discharge Orders: Discharge Order (Routine); Ordered 11/10/23 Ordered By: Palmira Siddiqui Referrals: Josef Loja MD [Physician] - 1-3 days (Patient will need a new PCP w/ 1st provider available. We have notified your physician's clinic of the need for a follow-up appointment to be scheduled. If you have not heard from them within the next 2 business days, please call them directly. ) Amanda Baer, PMHNP [Primary Care Provider] - Discharge Diet: Cardiac Discharge Activity: Resume usual activity Patient Instructions: Opioid Safety Activity Restrictions/Additional Instructions: Please keep a record of your blood pressures at home. Check them twice a day. If your blood pressure drops too low less than 110/70 please skip the spironolactone continue on lisinopril. Please take a record of blood pressures to your primary care doctor so further adjustments in medications can be made. If blood pressure stays greater than 180 systolic over 100 need to be seen back at the emergency room. You will need close follow-up since this is a new diagnosis for you. Be sure to follow-up on your blood pressures. If you develop chest pain, shortness of breath nausea, vomiting please return to the emergency room. Discharge Attestations Time Spent in Discharge Care*: greater than 30 min Quality Metrics Clinical Quality Measures [ No reported AMI, CVA or VTE this stay] Coding Level of Care Code Acute Code for g Fwd Diagnoses Hypertensive emergency I16.1 Nicotine dependence, cigarettes, uncomplicated F17.210
--- NOTE | 2023-11-10 15:06 | PC.NURSE ---
Discharge instructions given to patient. Prescriptions sent to Pharmacy. IV removed. Patient wheeled to front entrance to wait on a friend for a ride.
--- NOTE | 2023-11-10 20:34 | USCV_ITS ---
Chalres Main Age: 42 Gender: M : 1980 Exam Date: 11/10/2023 02:57 Ordering Phys: Gianfranco Uribe MD Technologist: AHSAN [place] [facility] [place]: Hypertension. No history of cardiac intervention per patient. BP: 129 / 93 HR: 73 Rhythm: Sinus Technical Quality: Adequate MEASUREMENTS (Male / Female) Normal Values 2D ECHO LV Diastolic Diameter PLAX 3.7 cm 4.2 - 5.9 / 3.9 - 5.3 cm IVS Diastolic Thickness 1.6 cm 0.6 - 1.0 / 0.6 - 0.9 cm IVS Systolic Thickness 2.1 cm LVPW Diastolic Thickness 1.5 cm 0.6 - 1.0 / 0.6 - 0.9 cm LVPW Systolic Thickness 2.0 cm LVOT Diameter 1.6 cm LV Ejection Fraction 2D Teich 59.7 % LV Ejection Fraction MOD 2C 72.0 % LV Ejection Fraction 2C AL 72.5 % LA Diameter 2.9 cm Aorta at Sinotubular Diameter 3.3 cm IVC Diameter 1.0 cm M-MODE LA Ao Ratio MM 1.2 AV Cusp Separation MM 1.9 cm DOPPLER AV Peak Velocity 149.0 cm/s LVOT Peak Velocity 128.0 cm/s AV Area Cont Eq vti 1.9 cm squared AV Area Cont Eq pk 1.6 cm squared MV Peak Velocity 100.0 cm/s MV Area PHT 3.0 cm squared Mitral E to A Ratio 0.6 TR Peak Velocity 242.0 cm/s TR Peak Gradient 23.4 mmHg TV Peak E Velocity 36.0 cm/s Right Atrial Pressure 3.0 mmHg Pulmonary Artery Systolic Pressu 26.4 mmHg PV Peak Velocity 102.0 cm/s FINDINGS Left Ventricle Normal left ventricular cavity size. Mild left ventricular hypertrophy. Normal left ventricular systolic function. No regional wall motion abnormalities. Left ventricular ejection fraction is estimated at 65%. Grade I/IV diastolic dysfunction (abnormal relaxation filling pattern), normal to mildly elevated filling pressures. Right Ventricle Normal right ventricular size and systolic function. Normal right ventricular systolic pressure. Right Atrium The right atrium is normal in size. Left Atrium The left atrium is normal in size. Mitral Valve Structurally normal mitral valve without significant stenosis or prolapse. There is no mitral regurgitation. Aortic Valve Structurally normal aortic valve without significant sclerosis or stenosis. There is no aortic regurgitation. Tricuspid Valve Structurally normal tricuspid valve without significant stenosis or regurgitation. Pulmonary artery systolic pressure is normal. Pulmonic Valve Pulmonic valve not well visualized. Pericardium Normal pericardium without effusion. Aorta Normal ascending aorta dimension. IVC The inferior vena cava appears normal. CONCLUSIONS Normal left ventricular cavity size. Mild left ventricular hypertrophy. Normal left ventricular systolic function. No regional wall motion abnormalities. Left ventricular ejection fraction is estimated at 65%. Grade I/IV diastolic dysfunction (abnormal relaxation filling pattern), normal to mildly elevated filling pressures. There are no prior echocardiogram studies to compare. Dr. Carlton Ledezma MD (Electronically Signed) Final Date: 10 November 2023 09:49 S
[2023-11-18 11:55] LABS: Plasma Renin Activity LC/MS/MS 2.01 ng/mL/h (0.25-5.82)
== END 2023-11-10 15:13 | disposition home or self-care (01) | DRG 305 ==
LOC: ER 16:41 → ICU 22:15
PROVIDERS: Internal Medicine; Admitting Provider Internal Medicine; Emergency Provider Family Medicine; PCP Nurse Practitioner Psychiatric/Mental Health; Visit Provider Internal Medicine
DX: I16.1 Hypertensive emergency (principal); F33.1 Major depressive disorder, recurrent, moderate; Z72.0 Tobacco use; F41.1 Generalized anxiety disorder; G93.89 Other specified disorders of brain
CPT/HCPCS: 36415; 70450; 71045; 80048; 80053; 80306; 81003; 82533; 84244; 84443; 84484; 85025; 93005; 93306; 96365; 96366; 96372; 96375; 96376; 99291; J0360; J1650; J3490; J7030

== ENCOUNTER 2023-11-29 19:11 | Emergency (ER) | payer MEDICARE, MEDICAID, SELFPAY ==
[2023-11-29 19:12] VITALS: BP 185/141; PULSE 88; RESP 18; TEMP 36.7; O2SAT 98; BMI 27.4
--- NOTE | 2023-11-29 19:15 | ED_ITS ---
HPI - General Adult 2 General: Chief complaint: General Medical Stated complaint: htn Time Seen by Provider: 11/29/23 19:12 Source: patient and EMS Mode of arrival: EMS Limitations: no limitations History of Present Illness: 43-year-old male history of hypertension states he checked his blood pressure today and it was in the 180s he been admitted here few weeks ago for his hypertension and was told that he needed to come to the ER and was at [place] he has no medical complaints denies any chest pain denies any headache states he has been taking his prescribed meds denies any fevers. Associated symptoms: Deny chest pain, dyspnea, headache(s), nausea, rash or vomiting Review of Systems 2 Const: Denies: fever(s), chills, body aches or change in appetite Eyes: Denies: blurry vision or eye discomfort ENMT: Denies: throat pain or dental pain Card: Denies: chest pain Resp: Denies: dyspnea GI: Denies: abdominal pain, nausea, vomiting or diarrhea Musc: Denies: neck pain or back pain Skin/Breast: Denies: rash Neuro: Denies: headache(s) PFSH ED 2 PFSH: Medical History Encounter for smoking cessation counseling Hypertension Cigarette nicotine dependence Generalized anxiety disorder Psychiatric care Bereavement Loss of multiple family members, most recent cousin by suicide. Opioid dependence, in remission heroin, last use 2015 Nicotine dependence, cigarettes, uncomplicated Major depressive disorder, recurrent episode, moderate with anxious distress Surgical History No pertinent past surgical history Family History (Updated 11/17/23 @ 10:15 by Kallie Leonard LPN) Father Hypertension Heart attack Mother Hypertension Social History Smoking and tobacco/nicotine status: current every day tobacco/nicotine user cigarettes Years cigarettes smoked: 20 Quit status (tobacco/nicotine): considering quitting Second hand smoke exposure: No Alcohol intake: former Substance/Drug Use: former Physical Exam 2 Const: COMMON NORMALS: no acute distress, patient oriented x3 and healthy appearing HENMT: COMMON NORMALS: normocephalic and atraumatic HEAD & SCALP: n ormocephalic and atraumatic Neck/C-Spine: COMMON NORMALS: full ROM and supple Chest: COMMONS NORMALS: normal inspection of the chest and normal palpation of entire chest wall Resp: COMMON NORMALS: normal respiratory effort, No retractions, No use of accessory muscles and clear to auscultation bilaterally AUSCULTATION: clear to auscultation bilaterally Cardio: COMMON NORMALS: regular rate, regular rhythm and No murmurs present (Cardio) RATE: regular rate RHYTHM: regular rhythm Extremity: COMMON NORMALS: normal to inspection and full ROM Neuro: COMMON NORMALS: patient oriented x3, moves all extremities and no focal motor deficits Psych: COMMON NORMALS: mental status grossly normal, Normal thought process present and cooperative THOUGHT PROCESS: Normal thought process present Skin: COMMON NORMALS: no rashes or lesions noted and no wounds GENERAL SKIN EXAM: no rashes or lesions noted Course 2 Vital Signs: Vital signs: Vital Signs Temperature 98.0 F 11/29/23 19:12 Pulse Rate 90 11/29/23 19:30 Respiratory Rate 18 11/29/23 19:30 Blood Pressure 144/107 11/29/23 19:30 Pulse Oximetry 99 11/29/23 19:30 Oxygen Delivery Me thod Room Air 11/29/23 19:30 MDM - General Adult Medical Decision Making Patient presents with hypertension his blood pressure is much improved here he is asymptomatic blood works normal he stable for discharge at this time. Medical Records I reviewed the patient's medical records. Lab Data I reviewed the patient's lab results. 11/29/23 19:23 11/29/23 19:23 Laboratory Results WBC 7.82 10^3/uL (3.29-11.43) 11/29/23 19: RBC 5.02 10^6/uL (3.85-5.65) 11/29/23 19:23 Hgb 15.30 g/dL (11.27-16.99) 11/29/23 19:23 Hct 41.3 % (37-53) 11/29/23 19:23 MCV 82.3 fl (82-101) 11/29/23 19:23 MCH 30.5 pg (27-33) 11/29/23 19: MCHC 37.0 g/dL (30-55) 11/29/23 19: RDW 13.0 % (12.1-15.1) 11/29/23 19:23 Plt Count 192 10^3/cmm (157-399) 11/29/23 19:23 MPV 9.9 fL (7.4-10.4) 11/29/23 19:23 Neut % (Auto) 34.9 % 11/29/23 19:23 Lymph % (Auto) 55.2 % 11/29/23 19:23 [place] % (Auto) 7.9 % 11/29/23 19:23 Eos % (Auto) 1.5 % 11/29/23 19:23 Baso % (Auto) 0.4 % 11/29/23 19:23 Neut # (Auto) 2.72 10^3/uL (1.8-7.7) 11/29/23 19:23 Lymph # (Auto) 4.3 10^3/uL (0.8-4.8) 11/29/23 19:23 [place] # (Auto) 0.6 10^3/uL (0.2-0.9) 11/29/23 19:23 Eos # (Auto) 0.1 10^3/uL (0.0-0.8) 11/29/23 19:23 Baso # (Auto) 0.0 10^3/uL (0.0-0.1) 11/29/23 19:23 Nucleated RBC % (auto) 0 % 11/29/23 19: Nucleated RBCs # 0.0 /100WBC 11/29/23 19:23 Sodium 141 mmol/L (136-145) 11/29/23 19:23 Potassium 4.2 mmol/L (3.5-5.1) 11/29/23 19:23 Chloride 102 mmol/L (98-107) 11/29/23 19:23 Carbon Dioxide 27 mmol/L (22-29) 11/29/23 19:23 Anion Gap 16.2 (5-19) 11/29/23 19:23 BUN 10 mg/dL (6-20) 11/29/23 19:23 Creatinine 1.1 mg/dL (0.7-1.2) 11/29/23 19:23 Calculated Osmolality 294 mOsm/kg (285-295) 11/29/23 19:23 Calcium 9.7 mg/dL (8.5-10.5) 11/29/23 19:23 Total Bilirubin 0.2 mg/dL (0.15-1.2) 11/29/23 19:23 AST 27 U/L (0-40) 11/29/23 19:23 Alkaline Phosphatase 104 U/L (40-130) 11/29/23 19:23 Total Protein 7.7 g/dL (6.6-8.7) 11/29/23 19:23 Albumin 4.8 g/dL (3.5-5.2) 11/29/23 19:23 Globulin 2.9 g/dL (1.3-4.6) 11/29/23 19:23 No radiology studies performed this visit EKG Data EKG 1: I personally reviewed and interpreted this EKG as follows: EKG interpretation date: 11/29/23 EKG interpretation time: 19:24 Interpretation: nsr hr [address] elevation qrs 97 qtc 364 Discharge Plan Discharge Patient Disposition: Home Clinical Impression: Hypertension Condition: Stable Prescriptions: No Action lisinopril-hydrochlorothiazide 10-12.5 mg tablet 1 tab PO DAILY Qty: 30 5RF spironolactone 25 mg tablet 25 mg PO DAILY Qty: 30 5RF buspirone 10 mg tablet 10 mg PO TID Qty: 90 6RF Rx Instructions: Take one tablet three times per day citalopram 20 mg tablet 20 mg PO QAM Qty: 30 6RF Rx Instructions: Take one tablet every morning quetiapine [Seroquel] 100 mg tablet 100 mg PO BEDTIME Qty: 30 6RF Rx Instructions: Take one tablet at bedtime Discharge Orders: Discharge ED (Routine); Ordered 11/29/23 Ordered By: Ar Grimaldo Referrals: Josef Loja MD [Primary Care Provider] - 1-3 days Discharge Diet: Advance as tolerated Discharge Activity: Resume usual activity Patient Instructions: Hypertension (ED) Coding Level of Care Code ED 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
--- NOTE | 2023-11-29 19:15 | ECG_ITS ---
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 Measurements Intervals [place] Rate: 89 P: -22 WV: 150 QRS: 126 QRSD: 97 T: 148 QT: 317 QTc: 387 Interpretive Statements SINUS RHYTHM POSSIBLE LEFT ATRIAL ENLARGEMENT [-0.1mV P-WAVE IN V1/V2] RIGHT AXIS DEVIATION [QRS AXIS > 100] ST ELEVATION, PROBABLY EARLY REPOLARIZATION [ST ELEVATION WITH NORMALLY INFLECTED T-WAVE] LVH Compared to ECG 11/09/2023 20:54:38 Right-axis deviation now present T-wave abnormality no longer present ST (T wave) deviation still present Electronically Signed On 11-30-2023 9:16:59 CDT by Grayson Galvez M.D. [email or web address]
[2023-11-29 19:27] LABS: Basophils % 0.4 %; Eosinophils # 0.1 10^3/uL (0.0-0.8); Eosinophils % 1.5 %; Hematocrit 41.3 % (37-53); Lymphocytes # 4.3 10^3/uL (0.8-4.8); Lymphocytes % 55.2 %; Mean Corpuscular Hemoglobin 30.5 pg (27-33); Mean Corpuscular Volume 82.3 fl (82-101); Mean Platelet Volume 9.9 fL (7.4-10.4); Monocytes # 0.6 10^3/uL (0.2-0.9); Monocytes % 7.9 %; Neutrophils # 2.72 10^3/uL (1.8-7.7); Neutrophils % 34.9 %; Nucleated Red Blood Cells % 0 %; Platelet Count 192 10^3/cmm (157-399); Red Blood Count 5.02 10^6/uL (3.85-5.65); White Blood Count 7.82 10^3/uL (3.29-11.43)
[2023-11-29 19:30] VITALS: BP 144/107; PULSE 90; RESP 18; O2SAT 99
[2023-11-29 19:45] LABS: Alanine Aminotransferase 71 U/L (0-41); Albumin Level 4.8 g/dL (3.5-5.2); Alkaline Phosphatase 104 U/L (40-130); Anion Gap 16.2 (5-19); Aspartate Amino Transferase 27 U/L (0-40); Blood Urea Nitrogen 10 mg/dL (6-20); Calcium 9.7 mg/dL (8.5-10.5); Carbon Dioxide 27 mmol/L (22-29); Chloride 102 mmol/L (98-107); Creatinine Clr Calc Pharmacy 75.4701; Globulin 2.9 g/dL (1.3-4.6); Glucose 147 mg/dL (65-115); Osmolality Calculated 294 mOsm/kg (285-295); Potassium 4.2 mmol/L (3.5-5.1); Sodium 141 mmol/L (136-145); Total Bilirubin 0.2 mg/dL (0.15-1.2); Total Protein 7.7 g/dL (6.6-8.7)
[2023-11-29] MEDS: metoprolol tartrate 25 mg Tablet PO (19:50)
[2023-11-29 20:05] VITALS: BP 146/110; PULSE 81; O2SAT 98
== END 2023-11-29 20:05 | disposition home or self-care (01) ==
PROVIDERS: Emergency Provider Emergency Medicine; PCP Family Medicine Adult Medicine
DX: I10 Essential (primary) hypertension (principal); F17.210 Nicotine dependence, cigarettes, uncomplicated
CPT/HCPCS: 36415; 80053; 85025; 93005; 99284

== ENCOUNTER → 2024-02-06 15:48 | Outpatient (BNVA) | payer MEDICARE, OTHER, SELFPAY | PROVIDERS: PCP Family Medicine Adult Medicine; Visit Provider Nurse Practitioner Psychiatric/Mental Health | DX: Z79.899 Other long term (current) drug therapy | CPT/HCPCS: 80061; 83036 ==

== ENCOUNTER 2024-02-10 18:34 | Emergency (ER) | payer MEDICARE, MEDICAID, SELFPAY ==
[2024-02-10 19:08] VITALS: BP 111/76; PULSE 71; RESP 16; TEMP 36.7; O2SAT 96
--- NOTE | 2024-02-10 20:21 | ED_ITS ---
HPI - Wound/Laceration General: Chief Complaint: Wound/Laceration Stated Complaint: bad cut left hand Time Seen by Provider: 02/10/24 20:09 Source: patient Mode of arrival: ambulatory Limitations: no limitations History of Present Illness: Patient is a 43-year-old male presents to ED today for evaluation of a laceration to his left pinky finger that he sustained earlier today. Patient states he was trying shut a glass window and accidentally cut the finger on a portion of the glass. Patient believes his last tetanus was approximately 4 years ago. Onset (ago): hour(s) Extremity Location: Left: hand (5th finger) Place: home Patient tetanus UTD: Yes Context: accidental Associated symptoms: Reports no associated symptoms Review of Systems Musc: Reports: extremity pain (L 5th finger) Skin/Breast: Reports: other (laceration L 5th finger) Neuro: Denies: numbness in extremities or sensory changes [facility] ED PFSH: Medical History CKD (chronic kidney disease) stage 2, GFR 60-89 ml/min Encounter for smoking cessation counseling Hypertension Cigarette nicotine dependence Generalized anxiety disorder Psychiatric care Bereavement Loss of multiple family members, most recent cousin by suicide. Opioid dependence, in remission heroin, last use 2015 Nicotine dependence, cigarettes, uncomplicated Major depressive disorder, recurrent episode, moderate with anxious distress Surgical History No pertinent past surgical history Family History Father Hypertension Heart attack Mother Hypertension Social History Smoking and tobacco/nicotine status: current every day tobacco/nicotine user cigarettes Years cigarettes smoked: 20 Quit status (tobacco/nicotine): considering quitting Second hand smoke exposure: No Alcohol intake: former Substance/Drug Use: former Physical Exam Const: COMMON NORMALS: no acute distress, no limitations, alert and well nourished Extremity: COMMON NORMALS: capillary refill normal GENERAL: Yes normal exam except as noted LEFT UPPER EXTREMITY: Yes hand & digits (TTP/flexion deformity at DIP joint) Left hand and digits: Yes inspection (laceration to dorsal L 5th digit; no obvious tendon involvement) and Yes neurovascular exam (normal) Neuro: COMMON NORMALS: moves all extremities, no focal motor deficits and no sensory deficits noted SENSORIUM/ORIENTATION: Yes alert Skin: TRAUMA: laceration Procedures Laceration Laceration 1: Site: hand (5th finger) Side (If applicable): left Size (cm): 2.0 Description: irregular Depth: simple, single layer Local Anesthetic: lidocaine 1% (digital block) Amount of anesthesia used (mL): 2.0 Pre-repair: wound explored and irrigated extensively Skin layer closed with: nylon Size (cm): 5-0 Number of sutures: 4 Technique: simple, interrupted Course Vital Signs: Vital signs: Vital Signs Temperature 98.1 F 02/10/24 19:08 Pulse Rate 71 02/10/24 19:08 Respiratory Rate 16 02/10/24 19:08 Blood Pressure 111/76 02/10/24 19:08 Pulse Oximetry 96 02/10/24 19:08 Oxygen Delivery Me thod Room Air 02/10/24 19:08 MDM - Wound/Laceration Medical Decision Making Patient has a laceration to the extensor surface of the left fifth finger. I do not visualize any tendon lacerations however he does have a flexion deformity to the DIP joint evident clinically and radiographically. Patient states this was not present prior to his injury which makes me suspicious for an extensor tendon injury. Wound was copiously irrigated and loosely closed. His tetanus is up-to-date. He will be referred to orthopedics. Finger splinted. Differential Diagnosis Likely laceration Medical Records I reviewed the patient's medical records. XR interpretation done by ED provider, pending radiology final review Discharge Plan Discharge Patient Disposition: Home Clinical Impression: Laceration of left little finger Qualifiers: Encounter type: initial encounter Damage to nail status: without damage Foreign body presence: without foreign body Qualified Code(s): S61.217A - Laceration without foreign body of left little finger without damage to nail, initial encounter Condition: Stable Prescriptions: No Action lisinopril-hydrochlorothiazide 10-12.5 mg tablet 1 tab PO DAILY Qty: 30 5RF spironolactone 25 mg tablet 25 mg PO DAILY Qty: 30 5RF quetiapine [Seroquel] 100 mg tablet 100 mg PO BEDTIME Qty: 30 6RF Rx Instructions: Take one tablet at bedtime citalopram 20 mg tablet 20 mg PO QAM Qty: 30 6RF Rx Instructions: Take one tablet every morning buspirone 10 mg tablet 10 mg PO TID Qty: 90 6RF Rx Instructions: Take one tablet three times per day Discharge Orders: Discharge ED (Routine); Ordered 02/10/24 Ordered By: Pepper Mckeon Referrals: Josef Loja MD [Primary Care Provider] - Patient Instructions: Finger Laceration (ED) Activity Restrictions/Additional Instructions: Keep wound/laceration clean with warm soap and water twice daily. Monitor for signs of infection such as redness, swelling, increased pain, or drainage. Please seek medical re-evaluation if these occur. If you received sutures today these will need to be removed. The provider should have discussed with you the length of time until removal-7 DAYS. You need to wear your finger splint until told otherwise by orthopedics. Case management should reach out to you next week to help set you up with this follow-up appointment. 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
--- NOTE | 2024-02-10 20:24 | XRR_ITS ---
PROCEDURE INFORMATION: Exam: XR Left Finger(s) Exam date and time: 02/10/2024 8:27 PM Age: 43 years old Clinical indication: Injury or trauma; Other: Laceration; Left; Little finger; Additional info: Injury/laceration; 5th TECHNIQUE: Imaging protocol: Radiologic exam of the left fingers. Views: Minimum 2 views. COMPARISON: No relevant prior studies available. FINDINGS: Bones/joints: Normal. Soft tissues: Normal. XR/XR finger LT min 2V 20400 IMPRESSION: No acute findings.
--- NOTE | 2024-02-10 21:12 | DCPLANNER ---
messaged ortho for er f/u
[2024-02-10 22:22] VITALS: PULSE 89; RESP 16; O2SAT 99
--- NOTE | 2024-02-13 15:42 | DCPLANNER ---
dr. reis declined, faxed and [facility]
== END 2024-02-10 21:35 | disposition home or self-care (01) ==
PROVIDERS: Emergency Provider Physician Assistant; PCP Family Medicine Adult Medicine
DX: S61.217A Laceration without foreign body of left little finger without damage to nail, initial encounter (principal); I12.9 Hypertensive chronic kidney disease with stage 1 through stage 4 chronic kidney disease, or unspecified chronic kidney disease; N18.2 Chronic kidney disease, stage 2 (mild); F17.210 Nicotine dependence, cigarettes, uncomplicated; W25.XXXA Contact with sharp glass, initial encounter
CPT/HCPCS: 12001; 73140; 99283

== ENCOUNTER 2024-05-21 21:26 | Emergency (ER) | payer MEDICARE, MEDICAID, SELFPAY ==
[2024-05-21 21:31] VITALS: BP 150/107; PULSE 80; RESP 18; TEMP 36.7; O2SAT 98; BMI 26.5
--- NOTE | 2024-05-21 21:40 | W.ED.GENADLT ---
HPI - General Adult General: Chief complaint: General Medical Stated complaint: HIGH BLOOD PRESSURE Time Seen by Provider: 05/21/24 21:38 History of Present Illness: Patient comes to the ER by EMS with complaints of high blood pressure. Patient states he has takes his blood pressure medicine as routine but he has been late on taking them and his blood pressure has been high still he is wondering if he can take more. Patient's blood pressure upon arrival is 150/107, patient is on lisinopril HCTZ/10/12.5, and spironolactone 25 mg each 1 pill daily. Related Data Previous Rx's Medication Instructions Recorded lisinopril 10 1 tab PO DAILY #30 tabs 11/17/23 mg-hydrochlorothiazide 12.5 mg tablet spironolactone 25 mg tablet 25 mg PO DAILY blood pressure #30 11/17/23 tabs buspirone 10 mg tablet 10 mg PO TID #90 tabs 05/03/24 citalopram 20 mg tablet 20 mg PO QAM #30 tabs 05/03/24 quetiapine 100 mg tablet (Seroquel) 100 mg PO BEDTIME #30 tabs 05/03/24 Allergies Allergy/AdvReac Type Severity Reaction Status Date / Time No Known Allergies Allergy Verified 05/21/24 21:37 Review of Systems General: Reports: 10 or more systems reviewed and unremarkable except in HPI and below PFSH ED PFSH: Medical History Pre-diabetes A1C 5.7 02/06/2024 CKD (chronic kidney disease) stage 2, GFR 60-89 ml/min Encounter for smoking cessation counseling Hypertension Cigarette nicotine dependence Generalized anxiety disorder Psychiatric care Bereavement Loss of multiple family members, most recent cousin by suicide. Opioid dependence, in remission heroin, last use 2015 Nicotine dependence, cigarettes, uncomplicated Major depressive disorder, recurrent episode, moderate with anxious distress Surgical History No pertinent past surgical history Family History Father Hypertension Heart attack Mother Hypertension Social History Smoking and tobacco/nicotine status: current every day tobacco/nicotine user cigarettes Years cigarettes smoked: 20 Quit status (tobacco/nicotine): considering quitting Second hand smoke exposure: No Alcohol intake: former Substance/Drug Use: former Physical Exam Const: COMMON NORMALS: no acute distress, average body habitus, patient oriented x3, no limitations, healthy appearing, alert and well nourished HENMT: COMMON NORMALS: normocephalic, atraumatic, hearing grossly normal bilaterally, external ears normal, Normal external nose present and moist oral mucous membranes HEAD & SCALP: normocephalic and atraumatic NOSE: Normal external nose present EXTERNAL EAR: Yes external ears normal Neck/C-Spine: COMMON NORMALS: no JVD Chest: COMMONS NORMALS: normal inspection of the chest and normal palpation of entire chest wall Resp: COMMON NORMALS: normal respiratory effort, No retractions, No use of accessory muscles and clear to auscultation bilaterally AUSCULTATION: clear to auscultation bilaterally Cardio: COMMON NORMALS: no JVD, regular rate, regular rhythm, S1 normal heart sound present, S2 normal heart sound present, No gallops present (Cardio), No clicks present (Cardio), No murmurs present (Cardio) and No rub (Cardio) RATE: regular rate RHYTHM: regular rhythm HEART SOUNDS: S1 normal heart sound present and S2 normal heart sound present GI: COMMON NORMALS: Normal to inspection, nondistended, normoactive bowel sounds present, Soft to palpation, non-tender, No hepatosplenomegaly present and no masses PALPATION: Yes Soft to palpation and Yes No hepatosplenomegaly present Neuro: COMMON NORMALS: patient oriented x3 SENSORIUM/ORIENTATION: Yes alert Course Vital Signs: Vital signs: Vital Signs Temperature 98.0 F 05/21/24 21:31 Pulse Rate 80 05/21/24 21:31 Respiratory Rate 18 05/21/24 21:31 Blood Pressure 150/107 05/21/24 21:31 Pulse Oximetry 98 05/21/24 21:31 Oxygen Delivery Me thod Room Air 05/21/24 21:31 MDM - General Adult Medical Decision Making Patient given 0.1 mg clonidine p.o. and this helped lower his blood pressure. He patient was told he can take an additional lisinopril hydrochlorothiazide or spironolactone daily if his blood pressure gets above 150/90. Patient understood. Patient be discharged home. Differential Diagnosis Hypertension Medical Records I reviewed the patient's medical records. Lab Data I reviewed the patient's lab results. No radiology studies performed this visit Discharge Plan Discharge Patient Disposition: Home Clinical Impression: Hypertension Qualifiers: Hypertension type: primary hypertension Qualified Code(s): I10 - Essential (primary) hypertension Condition: Stable Prescriptions: No Action buspirone 10 mg tablet 10 mg PO TID Qty: 90 6RF Rx Instructions: Take one tablet three times per day citalopram 20 mg tablet 20 mg PO QAM Qty: 30 6RF Rx Instructions: Take one tablet every morning quetiapine [Seroquel] 100 mg tablet 100 mg PO BEDTIME Qty: 30 6RF Rx Instructions: Take one tablet at bedtime lisinopril-hydrochlorothiazide 10-12.5 mg tablet 1 tab PO DAILY Qty: 30 5RF spironolactone 25 mg tablet 25 mg PO DAILY Qty: 30 5RF Discharge Orders: Discharge ED (Routine); Ordered 05/21/24 Ordered By: Jurgen Dao Referrals: Josef Loja MD [Primary Care Provider] - 1 week Patient Instructions: Hypertension Activity Restrictions/Additional Instructions: Our records show you are on 2 blood pressure medicines #1 lisinopril 10 mg/hydrochlorothiazide 12.5 mg 1 tab daily and #2 spironolactone 25 mg daily. If your blood pressures higher than 150/90 you may take an additional pill of either one of your medicines but not both. Please keep a blood pressure log of at least 2 blood pressures per day and take them to your family practice doctor when you follow-up from this ER visit within 7 days. Coding Level of Care Code ED Cyber Policy And Strategy Planner for [facility]
[2024-05-21 22:01] VITALS: BP 128/96
[2024-05-21 22:07] VITALS: BP 128/96; PULSE 78; RESP 18; O2SAT 96
== END 2024-05-21 22:08 | disposition home or self-care (01) ==
PROVIDERS: Emergency Provider Emergency Medicine; PCP Family Medicine Adult Medicine
DX: I12.9 Hypertensive chronic kidney disease with stage 1 through stage 4 chronic kidney disease, or unspecified chronic kidney disease (principal); N18.2 Chronic kidney disease, stage 2 (mild); F17.210 Nicotine dependence, cigarettes, uncomplicated
CPT/HCPCS: 99282

== ENCOUNTER → 2024-09-04 09:50 | Outpatient (BNVA) | payer MEDICARE, MEDICAID, SELFPAY | DX: I10 Essential (primary) hypertension (principal); R73.03 Prediabetes | CPT/HCPCS: 80053; 83036 ==

== ENCOUNTER → 2025-01-25 09:15 | Outpatient (BNVA) | payer MEDICARE, SELFPAY | PROVIDERS: Visit Provider Nurse Practitioner Psychiatric/Mental Health | DX: Z79.899 Other long term (current) drug therapy (principal) | CPT/HCPCS: 80061 ==

== ENCOUNTER 2025-02-26 20:27 | Emergency (ER) | payer OTHER, MEDICAID, SELFPAY ==
--- OUTSIDE RECORDS SUMMARY | 2015-07-08 08:21 | XMS_ITS | Continuity of Care Document ---
Author Organization [facility] Address [address] [place] [address] Phone Care Team Providers Care Lead Maintenance Technician Name Role Phone Management, Case Unavailable Unavailable [facility] SKELTON, Ronen Unavailable Unavailable Allergies, Adverse Reactions, Alerts Substance Reaction Status Criticality No Known Allergies Active No Inform ation Medications Medication Instructions Dosage Effective Dates (start - stop) Status Comments Reglan 10 mg Tab take 1 tablet (10MG) by ORAL route every 8 hours for headache with aspirin as directed 10 MG - Active aspirin 325 mg Tab take 3 tablet (975MG) by ORAL route every 8 hours as needed 975 MG - Active take as directed with reglan for migraine Procedures Procedure Date OFFICE O/P EST 5 MIN OFFICE OUTPT EST 25 MIN Periapical Radiographic Image, ea addl J Limit oral eval problem focused 015 OFFICE O/P EST 5 MIN Alcohol and/or drug screening 5 OFFICE/OUTPATIENT VISIT, NEW Prescription Drug, Oral, Non-Chemotherap eutic, NOS OFFICE OUTPT EST 25 MIN PSYCHIATRIC DIAGNOSTIC INTERVIEW EXAMINA TIJO Dental prophylaxis adult Perio/Scale 1-3 Teeth COLLECTION OF VENOUS BLOOD BY DINESH GIVENS OFFICE/OUTPATIENT VISIT, NEW HOME VST EST PT LOW TO MOD SEVERITY HOME VST EST PT LOW TO MOD SEVERITY Debridement, Full Mouth PSYCHIATRIC DIAGNOSTIC INTERVIEW EXAMINA TION Comprehensve oral evaluation Dental bitewings two films HOME VST EST PT LOW TO MOD SEVERITY HOME VST NEW PT HI SEVERITY HOME VST EST PT LOW TO MOD SEVERITY HOME VST EST PT LOW TO MOD SEVERITY HOME VST EST PT LOW TO MOD SEVERITY HOME VST EST PT LOW TO MOD SEVERITY HOME VST EST PT LOW TO MOD SEVERITY HOME VST NEW PT HI SEVERITY HOME VST EST PT LOW TO MOD SEVERITY Advance Directives Directive Yes / No Effective Date File Name No Information Encounters Encounter Description Practice Location Reason(s) For Visit Diagnoses Date Provider Providers Copied on Encounter [facility], [address], [place], [place], [id number] , tel:[phone] [facility] No Information Management Case. [address], [place], [place], [address], . tel:[phone] Referring Provider: Codi Treadwell, [address], [place], [address] . tel:[phone] sulting Provider: Ronen Jhaveri, [address] [place] [address], [address]. OFFICE O/P EST 5 MIN [facility], [address], [place], [place], [address] , tel:[phone] [facility] BP Recheck (chief complaint) Hypertension, Benign Management Case. [address], [place], [place], [address], [place]. tel:[phone] OFFICE OUTPT EST 25 MIN [facility], [address], [place], [place], [address] , tel:[phone] [facility] hypertension (chief complaint) Elevated blood pressure reading w/ no diagnosis of HT No Information [facility], [address], [place], [place], [address] , tel: [phone] [facility] Dental examination 5 No Information OFFICE O/P EST 5 MIN [facility], [address], [place], [place], [address] , [place] tel: [phone] [facility] Needs Dental (chief complaint) Tooth painHeadacheScr eening for alcoholism 5 Management Case. [address], [place], [place], [address], [place]. tel:[phone] OFFICE/OUTPA TIENT VISIT, NEW [facility], [address], [place], [place], [address] , [place] tel: [phone] [facility] STI TREATMENT (chief complaint) Sexually transmitted infection 4 No Information OFFICE OUTPT EST 25 MIN [facility], [address], [place], [place], [address] , [place] tel: [phone] [facility] [address] [facility] migraine (chief complaint)med ication refill (chief complaint) Headache 1 No Information [facility], [address], [place], [place], [address] , [place] tel: [phone] [facility] depression (chief complaint) Person feigning illnessOpioid type dependence, in remissionNondep endent cannabis abuse, in remissionNondep endent cocaine abuse, in remissionConduc t disorder, childhood onset typeAntisocial personality disorder 0 No Information [facility], [address], [place], [place], [address] , [place] tel: [phone] DO NOT USE [facility] No Information 0 No Information [facility], [address], [place], [place], [address] , [place] tel: [phone] DO NOT USE [facility] No Information 0 No Information OFFICE/OUTPA TIENT VISIT, NEW [facility], [address], [place], [place], [address] , [place] tel: [phone] [facility] [address] [facility] migraines for 6 days (chief complaint) HeadacheDepress zaid disorder, not elsewhere classified 0 No Information HOME VST EST PT LOW TO MOD SEVERITY [facility], [address], [place], [place], [address] , [place] tel: [phone] [facility] headache (chief complaint) Counseling, Other, Specified 0 Nurse Registered. [address], [place], [place], [address], [place]. tel:[phone] HOME VST EST PT LOW TO MOD SEVERITY [facility], [address], [place], [place], [address] , [place] tel: [phone] [facility] PPD results (chief complaint) Counseling, Other, Specified 0 Nurse Registered. [address], [place], [place], [address], [place]. tel:[phone] [facility], [address], [place], [place], [address] , [place] tel: [phone] DO NOT USE [facility] No Information 0 No Information [facility], [address], [place], [place], [address] , [place] tel: [phone] [facility] Depression (chief complaint) Major depressive affective disorder, recurrent episode, unspecified degree 0 No Information [facility], [address], [place], [place], [address] , [place] tel: [phone] DO NOT USE [facility] No Information 0 No Information HOME VST EST PT LOW TO MOD SEVERITY [facility], [address], [place], [place], [address] , [place] tel: [phone] [facility] TB Screening (chief complaint) Other specified counseling 0 No Information HOME VST NEW PT HI SEVERITY [facility], [address], [place], [place], [address] , [place] tel: [phone] [facility] OTHER SPECFD COUNSELING 9 No Information HOME VST EST PT LOW TO MOD SEVERITY [facility], [address], [place], [place], [address] , [place] tel: [phone] [facility] OTHER SPECFD COUNSELING 9 No Information HOME VST EST PT LOW TO MOD SEVERITY [facility], [address], [place], [place], [address] , [place] tel: [phone] [facility] OTHER SPECFD COUNSELING 7 No Information HOME VST EST PT LOW TO MOD SEVERITY [facility], [address], [place], [place], [address] , [place] tel: [phone] [facility] OTHER SPECFD COUNSELING 7 No Information HOME VST EST PT LOW TO MOD SEVERITY [facility], [address], [place], [place], [address] , [place] tel: [phone] [facility] OTHER SPECFD COUNSELING 7 No Information HOME VST EST PT LOW TO MOD SEVERITY [facility], [address], [place], [place], [address] , [place] tel: [phone] [facility] OTHER SPECFD COUNSELING 7 No Information HOME VST NEW PT HI SEVERITY [facility], [address], [place], [place], [address] , [place] tel: [phone] [facility] OTHER SPECFD COUNSELING 7 No Information HOME VST EST PT LOW TO MOD SEVERITY [facility], [address], [place], [place], [address] , [place] tel: [phone] [facility] OTHER SPECFD COUNSELING 6 No Information Family History Family Member Type Diagnosis Age At Onset Father Problem (finding) hypertension Mother Problem (finding) Maternal histo ry of diabetes mellitus Maternal grandfather Problem (finding) coronary arteri osclerosis Mother Problem (finding) migraine Payers Payer name Insurance type Covered constitution party ID Authoriza tion(s) No Information Social History Type Description Quantity Date Captured Comments Alcohol Use Details Unknown Caffeine Use Details Unknown Tobacco Use Status Smoking Status No Information Sex Male Sexual Orientation Straight or heterosexual Chief Complaint And Reason For Visit No Information Reason For Referral Reason For Referral No Information Plan Of Treatment Date Type Action Status Goal AST. Due on due Goal BMP fasting. Due on due Goal ALT. Due on due Goal AST. Due on due Goal ALT. Due on due Goal BMP fasting. Due on due Goal Tobacco cessation counseling completed Goal ALT. Due on due Goal BMP fasting. Due on due Goal AST. Due on due Goal AST. Due on due Goal ALT. Due on due Goal BMP fasting. Due on due Goal BMP fasting. Due on due Goal ALT. Due on due Goal AST. Due on due Goal ALT. Due on due Goal BMP fasting. Due on due Goal AST. Due on due History Of Present Illness Encounter Date Complaint History Of Prese nt Illness BP Recheck Concerned about BP; saw Dr. Meyrs yesterday who recommended f/u hypertension Risk factors inc lude male gender. Additional information: no Hx of HTN, worried about BP Needs Dental The symptoms beg an 1 week ago. The symptoms are reported as being incapacitating. The symptoms occur constantly. Aggravating factors include eating. He states the symptoms are acute. Pain in wisdom teeth; needs extractions STI TREATMENT Functional Status Date Functional Assessmen t No Information Instructions Date Instruction Additional Infor fredy re evaluate in 10 da ys, no treatment at this time Related to Elevated blood pressure reading w/ no diagnosis of HT Discussed STI trichm onas, transmission S&S,and treatment. Tx'd w/ Flagyl 2gm Po X 1 w/etoh precautions. F/U with medical DrTrisha Related to Sexually transmitted infection Return to office in 48-72hours R elated to screening for TB Assessments Type Assessment Date No Information Patient Care Teams Name Effective Dates (start - stop) Status Members No Information
--- OUTSIDE RECORDS SUMMARY | 2015-07-23 09:12 | XMS_ITS | Continuity of Care Document ---
Author Organization [facility] Address [address] [place] [address] Phone Care Team Providers Care Hoist Worker Name Role Phone Marcelle Denson Unavailable Unavailable Allergies, Adverse Reactions, Alerts Substance Reaction Status Criticality No Known Allergies Active No Inform ation Medications Medication Instructions Dosage Effective Dates (start - stop) Status Comments acetaminophen 500 mg tablet take 2 tablet by oral route every 6 hours as needed 1000 MG - Active Lidocaine Viscous 2 % mucosal solution take 15 milliliter by oral route every 3 hours and swish and spit out 15.00 milliliter - Active Procedures Procedure Date OFFICE/OUTPATIENT VISIT, [facility] Advance Directives Directive Yes / No Effective Date File Name No Information Encounters Encounter Description Practice Location Reason(s) For Visit Diagnoses Date Provider Providers Copied on Encounter OFFICE/OUTPATI ENT VISIT, [facility], [address] [place], [address], tel:[phone] *[facility] headache (chief complaint) Episodic tension-typ e headache, not intractable Pain, dental Emiliano Ibanez. [address] [place], [address], [place]. tel:[phone] Family History Family Member Type Diagnosis Age At Onset Mother Problem (finding) Heart disease (Cause Of ) Father Problem (finding) Payers Payer name Insurance type Covered democrat ID Authoriza tion(s) No Information Social History Type Description Quantity Date Captured Comments Alcohol Use Details No Caffeine Use Details Unknown Tobacco Use Status Smoking Status Current every day smoker Smoking Tobacco Use Details Cigarette: No Details Available Cigarette: No Details Available Sex Male Vital Signs Date / Time: Height Weight BMI Pulse Rate Blood Pressure Temperature Respiratory Rate Body Surface Area Head Circumference Head Circ. Percentile Wt./[place]. Percentile BMI percentile Pulse Ox Inhaled Ox 2:12 PM 63.50 in 53.524 kg (118.00 lbs) 20.5 7 kg/m eter (2) 92 /min 138/86 mm[Hg] 97.90 F 18 /min 98 % Chief Complaint And Reason For Visit From encounter dated '07/23/2015 14:12'. headache (chief complaint). Description: Onset: 1 Week. The severity of the problem is mild. The symptoms are recurring. Locations affected include frontal. Headache timing includes no pattern. Denies aggravating factors. Symptoms are relieved by OTC meds. Pertinent negatives include blurred vision, dizziness, fever, loss of consciousness, memory loss, nausea, vertigo or vomiting. Reason For Referral Reason For Referral No Information Plan Of Treatment Date Type Action Status Goal Tobacco cessation counseling completed History Of Present Illness Encounter Date Complaint History Of Prese nt Illness headache Onset: 1 Week. T he severity of the problem is mild. The symptoms are recurring. Locations affected include frontal. Headache timing includes no pattern. Denies aggravating factors. Symptoms are relieved by OTC meds. Pertinent negatives include blurred vision, dizziness, fever, loss of consciousness, memory loss, nausea, vertigo or vomiting. Functional Status Date Functional Assessmen t No Information Instructions Date Instruction Additional Infor fredy encouraged pt to use OTC tylenol and will order lidocaine swish and spit for pain relief. Related to Pain, dental discussed with patie nt ways to avoid triggers of most migraines, including red wine, aged cheeses, excessive caffiene intake, loud, noisy venues, strong odors. Get adequate rest, stop smoking if you smoke. If you develop a headache, take your medication right away and try to go to a dark, quiet place for 1/2 hour if possible. rtc if headache worsens or becomes more frequent. Related to Episodic tension-type headache, not intractable Assessments Type Assessment Date assessment Episodic tension-type headache, not intractable assessment Pain, dental Mental Status Date Cognitive Assessment Orientation - Edward ed to time, place, person, situation. Patient Care Teams Name Effective Dates (start - stop) Status Members No Information
[2025-02-26 20:28] VITALS: BP 124/83; PULSE 90; RESP 16; TEMP 36.8; O2SAT 95; BMI 25.7
--- NOTE | 2025-02-26 20:47 | ECG_ITS ---
[facility]: 2025-02[facility]26 Pat Name: Charles Main Department: Room: Gender: Male Client Service Executive: : 1980 Requested By: Cipriano Uriostegui Order Number: [id number] Stoddard MD: Grayson Galvez M.D. Measurements Intervals [place] Rate: 79 P: 65 [place]: 164 QRS: 56 QRSD: 84 T: 52 QT: 332 QTc: 383 Interpretive Statements SINUS RHYTHM LEFT ATRIAL ENLARGEMENT [-0.15mV P-WAVE IN V1/V2] Compared to ECG 11/29/2023 19:24:38 Right-axis deviation no longer present ST (T wave) deviation no longer present Early repolarization no longer present Left ventricular hypertrophy no longer present Electronically Signed On 02-28-2025 08:58:33 CDT by Grayson Galvez M.D. [email or web address]
--- NOTE | 2025-02-26 20:56 | W.ED.GENADLT ---
HPI - General Adult General: Chief complaint: General Medical Stated complaint: HIGH BLOOD PRESSURE Time Seen by Provider: 02/26/25 20:33 History of Present Illness: Pt reports experiencing elevated BP while playing basketball at the park with his nephew. He describes feeling blurry and as if he might fall out. He took his prescribed BP medication (spironolactone 25 mg), as previously instructed to take two tablets if BP exceeded 160. Despite this, home BP readings remained elevated at 168 and 165. A friend advised calling EMS, and pt was transported for evaluation. Pt denies chest pain, abdominal pain, nausea, headache, or feeling like he is about to pass out at the time of evaluation. Vision has returned to normal. No other acute symptoms reported. Related Data Previous Rx's ?Medication ?Instructions ?Recorded buspirone 10 mg tablet 10 mg PO TID #270 tabs 09/06/24 citalopram 20 mg tablet 20 mg PO QAM #90 tabs 09/06/24 quetiapine 100 mg tablet (Seroquel) 100 mg PO BEDTIME #90 tabs 09/06/24 lisinopril 10 See Rx Instructions .Route 02/26/25 mg-hydrochlorothiazide 12.5 mg .COMPLEX #30 tabs tablet spironolactone 25 mg tablet See Rx Instructions .Route 02/26/25 .COMPLEX #30 tabs Allergies Allergy/AdvReac Type Severity Reaction Status Date / Time No Known Allergies Allergy Verified 01/25/25 08:32 [facility] ED PFSH: Medical History Pre-diabetes A1C 5.7 02/06/2024 CKD (chronic kidney disease) stage 2, GFR 60-89 ml/min Encounter for smoking cessation counseling Hypertension Cigarette nicotine dependence Generalized anxiety disorder Psychiatric care Bereavement Loss of multiple family members, most recent cousin by suicide. Opioid dependence, in remission heroin, last use 2015 Nicotine dependence, cigarettes, uncomplicated Major depressive disorder, recurrent episode, moderate with anxious distress Surgical History No pertinent past surgical history Family History Father Hypertension Heart attack Mother Hypertension Social History Smoking and tobacco/nicotine status: current every day tobacco/nicotine user cigarettes Years cigarettes smoked: 20 Quit status (tobacco/nicotine): considering quitting Second hand smoke exposure: No Alcohol intake: former Substance/Drug Use: former Physical Exam Const: COMMON NORMALS: no acute distress, patient oriented x3 and alert HENMT: COMMON NORMALS: normocephalic and atraumatic HEAD & SCALP: normocephalic and atraumatic Eye: COMMON NORMALS: Equal, round and reactive pupils present, EOMs intact bilaterally and no scleral icterus PUPIL: Yes Equal, round and reactive pupils present Resp: COMMON NORMALS: normal respiratory effort and No retractions Cardio: COMMON NORMALS: regular rate, regular rhythm and No murmurs present (Cardio) RATE: regular rate RHYTHM: regular rhythm GI: COMMON NORMALS: Normal to inspection, nondistended, normoactive bowel sounds present, Soft to palpation and non-tender PALPATION: Yes Soft to palpation Neuro: COMMON NORMALS: patient oriented x3 SENSORIUM/ORIENTATION: Yes alert Skin: COMMON NORMALS: no rashes or lesions noted GENERAL SKIN EXAM: no rashes or lesions noted Course Vital Signs: Vital signs: Vital Signs Temperature 98.2 F 02/26/25 20:28 Pulse Rate 86 02/26/25 21:52 Respiratory Rate 17 02/26/25 21:41 Blood Pressure 114/80 02/26/25 21:52 Pulse Oximetry 97 02/26/25 21:52 Oxygen Delivery Me thod Room Air 02/26/25 20:28 [facility] - General Adult Medical Decision Making In summary, patient is a generally well-appearing 44-year-old male seen for high blood pressure measurement and lightheadedness. Lightheadedness appears to be due to YAKELIN. Without treatment, blood pressure has returned to 120/80. I do not suspect any emergent process warranting further workup. EKG and labs showed nothing else acute. He will be discharged in stable and improved condition. We discussed that the body can tolerate transient elevation of blood pressure and that if taken his blood pressure medication is able to get him back to goal levels within a day, it is reasonable to not come to the emergency department every time high blood pressure is noted unless there are accompanying symptoms such as headache, chest pain, etc. He shows good understanding and agrees with plan Lab Data 02/26/25 21:07 02/26/25 21:07 Laboratory Results WBC 8.17 10^3/uL (3.29-11.43) 02/26/25 21:07 RBC 4.40 10^6/uL (3.85-5.65) 02/26/25 21:07 Hgb 13.50 g/dL (11.27-16.99) 02/26/25 21:07 Hct 36.5 % (37-53) L 02/26/25 21:07 MCV 83.0 fl (82-101) 02/26/25 21:07 MCH 30.7 pg (27-33) 02/26/25 21:07 MCHC 37.0 g/dL (30-55) 02/26/25 21:07 RDW 13.2 % (12.1-15.1) 02/26/25 21:07 Plt Count 165 10^3/cmm (157-399) 02/26/25 21:07 MPV 10.8 fL (7.4-10.4) H 02/26/25 21:07 Neut % (Auto) 42.3 % 02/26/25 21:07 Lymph % (Auto) 48.8 % 02/26/25 21:07 [place] % (Auto) 7.3 % 02/26/25 21:07 Eos % (Auto) 1.0 % 02/26/25 21:07 Baso % (Auto) 0.4 % 02/26/25 21:07 Neut # (Auto) 3.45 10^3/uL (1.8-7.7) 02/26/25 21:07 Lymph # (Auto) 4.0 10^3/uL (0.8-4.8) 02/26/25 21:07 [place] # (Auto) 0.6 10^3/uL (0.2-0.9) 02/26/25 21:07 Eos # (Auto) 0.1 10^3/uL (0.0-0.8) 02/26/25 21:07 Baso # (Auto) 0.0 10^3/uL (0.0-0.1) 02/26/25 21:07 Nucleated RBC % (auto) 0 % 02/26/25 21:07 Nucleated RBCs # 0.0 /100WBC 02/26/25 21:07 Sodium 142 mmol/L (136-145) 02/26/25 21:07 Potassium 3.9 mmol/L (3.5-5.1) 02/26/25 21:07 Chloride 104 mmol/L (98-107) 02/26/25 21:07 Carbon Dioxide 25 mmol/L (22-29) 02/26/25 21:07 Anion Gap 16.9 (5-19) 02/26/25 21:07 BUN 19 mg/dL (6-20) 02/26/25 21:07 Creatinine 1.3 mg/dL (0.7-1.2) H 02/26/25 21:07 GFR Calculation 72.2 mL/min (90-130) L 02/26/25 21:07 Glucose 109 mg/dL (65-115) 02/26/25 21:07 Calculated Osmolality 297 mOsm/kg (285-295) H 02/26/25 21:07 Calcium 9.4 mg/dL (8.5-10.5) 02/26/25 21:07 Total Bilirubin 0.2 mg/dL (0.15-1.2) 02/26/25 21:07 AST 20 U/L (0-40) 02/26/25 21:07 ALT 24 U/L (0-41) 02/26/25 21:07 Alkaline Phosphatase 100 U/L (40-130) 02/26/25 21:07 Total Protein 7.3 g/dL (6.6-8.7) 02/26/25 21:07 Albumin 4.3 g/dL (3.5-5.2) 02/26/25 21:07 Globulin 3.0 g/dL (1.3-4.6) 02/26/25 21:07 No radiology studies performed this visit EKG Data EKG 1: Interpretation: Time?2050?sinus rhythm, rate of 79, no ST segment elevation or depression, no T wave versions, QTc = 367 Discharge Plan Discharge Patient Disposition: Home Clinical Impression: Dehydration after exertion Condition: Stable Prescriptions: No Action quetiapine [Seroquel] 100 mg tablet 100 mg PO BEDTIME Qty: 90 2RF Rx Instructions: Take one tablet at bedtime citalopram 20 mg tablet 20 mg PO QAM Qty: 90 2RF Rx Instructions: Take one tablet every morning buspirone 10 mg tablet 10 mg PO TID Qty: 270 2RF Rx Instructions: Take one tablet three times per day lisinopril-hydrochlorothiazide 10-12.5 mg tablet See Rx Instructions .ROUTE .COMPLEX Qty: 30 5RF Dose Instruction: TAKE 1 TABLET BY MOUTH EVERY DAY Rx Instructions: TAKE 1 TABLET BY MOUTH EVERY DAY spironolactone 25 mg tablet See Rx Instructions .ROUTE .COMPLEX Qty: 30 5RF Dose Instruction: TAKE 1 TABLET BY MOUTH EVERY DAY FOR BLOOD PRESSURE Rx Instructions: TAKE 1 TABLET BY MOUTH EVERY DAY FOR BLOOD PRESSURE Discharge Orders: Discharge ED (Routine); Ordered 02/26/25 Ordered By: Cipriano Reynolds Referrals: Shima Hull NP [Primary Care Provider, Family Practice] Discharge Diet: Advance as tolerated Discharge Activity: Resume usual activity Patient Instructions: Dehydration (ED), Patient Portal & [place] Instructions Activity Restrictions/Additional Instructions: drink a little extra water the next few days to fix your dehydration which is probably the cause for your blurry vision during ball. Print Language: Mohawk Coding Level of Care Code ED Superintendent Greens for To [facility]
[2025-02-26 21:18] LABS: Hematocrit 36.5 % (37-53); Hemoglobin 13.50 g/dL (11.27-16.99); Mean Corpuscular HGB Conc 37.0 g/dL (30-55); Mean Corpuscular Hemoglobin 30.7 pg (27-33); Mean Corpuscular Volume 83.0 fl (82-101); Nucleated Red Blood Cells % 0 %; Platelet Count 165 10^3/cmm (157-399); Red Blood Count 4.40 10^6/uL (3.85-5.65); White Blood Count 8.17 10^3/uL (3.29-11.43)
[2025-02-26 21:34] LABS: Alanine Aminotransferase 24 U/L (0-41); Albumin Level 4.3 g/dL (3.5-5.2); Alkaline Phosphatase 100 U/L (40-130); Anion Gap 16.9 (5-19); Aspartate Amino Transferase 20 U/L (0-40); Blood Urea Nitrogen 19 mg/dL (6-20); Calcium 9.4 mg/dL (8.5-10.5); Carbon Dioxide 25 mmol/L (22-29); Chloride 104 mmol/L (98-107); Creatinine Clr Calc Pharmacy 61.3525; Globulin 3.0 g/dL (1.3-4.6); Glucose 109 mg/dL (65-115); Osmolality Calculated 297 mOsm/kg (285-295); Potassium 3.9 mmol/L (3.5-5.1); Sodium 142 mmol/L (136-145); Total Protein 7.3 g/dL (6.6-8.7)
[2025-02-26 21:41] VITALS: BP 117/82; PULSE 82; RESP 17; O2SAT 96
[2025-02-26 21:52] VITALS: BP 114/80; PULSE 86; O2SAT 97
== END 2025-02-26 21:53 | disposition home or self-care (01) ==
PROVIDERS: Emergency Provider Student in an Organized Health Care Education/Training Program
DX: E86.0 Dehydration (principal); F17.210 Nicotine dependence, cigarettes, uncomplicated; I12.9 Hypertensive chronic kidney disease with stage 1 through stage 4 chronic kidney disease, or unspecified chronic kidney disease; N18.2 Chronic kidney disease, stage 2 (mild)
CPT/HCPCS: 80053; 85025; 93005; 99284